=== PATIENT | male | born 1980 | race Caucasian/White ===

== ENCOUNTER 2017-01-31 15:30 | Emergency (ER) | payer BC ==
[2017-01-31 15:52] LABS: Glucose,Whole Blood 99 mg/dL (75-99)
--- NOTE | 2017-01-31 16:39 | ED ---
Recheck HPI - General Chief Complaint: Recheck/Abnormal Lab/Rx Stated Complaint: Hypoglycemia Source: patient Mode of arrival: ambulatory Limitations: no limitations - History of Present Illness Initial Comments: 36-year-old male presented for evaluation of hyperglycemia. He states that he came in to work today and had a coffee and a piece of toast with peanut butter and started to feel a little lightheaded and not himself. He took his blood sugar and found it to be 58. He ate some more food and at the recheck it had increased to an appropriate level. However little bit later he had similar symptoms again and checked his blood sugar and had once again decreased. He states he's had multiple episodes of this over the last months and has discussed it with his primary care physician but no workup has been performed. He denies any other associated symptoms. He is not a diabetic. There are no changes in medications. Review of Systems ROS Statement: Those systems with pertinent positive or pertinent negative responses have been documented in the HPI. ROS Other: All systems not noted in ROS Statement are negative. Constitutional: Denies: fever, chills, weakness, weight change, night sweats Eyes: Denies: eye pain, eye discharge, vision change ENT: Denies: ear pain, throat pain, dental pain, hearing loss, epistaxis, congestion Respiratory: Denies: cough, dyspnea, wheezes Cardiovascular: Denies: chest pain, palpitations, syncope Endocrine: Denies: fatigue, polydipsia, polyuria Gastrointestinal: Denies: abdominal pain, nausea, vomiting, diarrhea, constipation, hematemesis Genitourinary: Denies: urgency, dysuria Musculoskeletal: Denies: back pain, arthralgia, myalgia Skin: Denies: rash, lesions, change in color Neurological: Reports: weakness. Denies: headache Psychiatric: Denies: anxiety, depression, auditory hallucinations, visual hallucinations Hematological/Lymphatic: Denies: easy bleeding, easy bruising Past Medical History Past Medical History: Hypertension History of Any Multi-Drug Resistant Organisms: None Reported Past Surgical History: No Surgical Hx Reported Past Psychological History: No Psychological Hx Reported Smoking Status: Never smoker Past Alcohol Use History: Occasional Past Drug Use History: None Reported General Exam Limitations: no limitations General appearance: alert, in no apparent distress Head exam: Present: atraumatic, normocephalic, normal inspection Eye exam: Present: normal appearance, PERRL, EOMI. Absent: scleral icterus, conjunctival injection, periorbital swelling ENT exam: Present: normal exam, mucous membranes moist Neck exam: Present: normal inspection. Absent: tenderness, meningismus, lymphadenopathy Respiratory exam: Present: normal lung sounds bilaterally. Absent: respiratory distress, wheezes, rales, rhonchi, stridor Cardiovascular Exam: Present: regular rate, normal rhythm, normal heart sounds. Absent: systolic murmur, diastolic murmur, rubs, gallop, clicks GI/Abdominal exam: Present: soft, normal bowel sounds. Absent: distended, tenderness, guarding, rebound, rigid Rectal exam: Present: deferred Extremities exam: Present: normal inspection, full ROM, normal capillary refill. Absent: tenderness, pedal edema, joint swelling, calf tenderness Back exam: Present: normal inspection Neurological exam: Present: alert, oriented X3, CN II-XII intact Psychiatric exam: Present: normal affect, normal mood Skin exam: Present: warm, dry, intact, normal color. Absent: rash Course Vital Signs 01/31/17 01/31/17 15:49 16:55 Temperature 99.3 F 98.4 F Pulse Rate 80 75 Respiratory 20 18 Rate Blood Pressure 154/86 157/97 O2 Sat by Pulse 98 96 Oximetry Medical Decision Making - Medical Decision Making 36-year-old male presenting for evaluation of hyperglycemia. Upon presentation to the ED his blood sugar was within normal limits. A complete physical exam was performed without any abnormalities noted including intact cranial nerves II through XII without focal neurologic deficit, normal gait and station, soft abdomen without peritoneal signs of guarding, rigidity, rebound, lungs clear to auscultation bilaterally. The patient was informed of his new blood glucose and that labs would not be necessary at this time. He was advised follow-up with his primary care physician for further evaluation and treatment however he was given return instructions should his symptoms return, worsen, or persist. The patient acknowledged an understanding of this information and agreed with this plan of care. He was stable at discharge. - Lab Data Lab Results 01/31/17 Range/Units 15:50 POC Glucose (mg/dL) 99 (75-99) mg/dL POC Glu Weight Checker ID Bridgette Bailey Disposition Clinical Impression: Hypoglycemia Disposition: HOME SELF-CARE Condition: Stable Instructions: Non-diabetic Hypoglycemia (ED) Referrals: Mary Jo Ceballos MD [Primary Care Provider] - 1-2 days Time of Disposition: 16:39
[2017-01-31 16:57] VITALS: BP 157/97; PULSE 75; RESP 18; TEMP 98.4
== END 2017-01-31 16:57 | disposition home or self-care (01) ==
LOC: EC 15:30
DX: E16.2 Hypoglycemia, unspecified (principal)
CPT/HCPCS: 36415; 99283

== ENCOUNTER → 2017-10-07 | Outpatient (CLI) | payer BC ==
--- NOTE | 2017-10-07 10:07 | XR ---
EXAMINATION TYPE: XR chest 2V DATE OF EXAM: 10/07/2017 COMPARISON: 05/13/2013 INDICATION: Chest pain TECHNIQUE: Frontal and lateral views of the chest are obtained. FINDINGS: The heart size is normal. The pulmonary vasculature is normal. The lungs are clear. IMPRESSION: 1. No acute pulmonary process.
== END | disposition home or self-care (01) ==
LOC: RADXRMAIN 09:32
PROVIDERS: ATTEND Emergency Medicine
DX: R07.9 Chest pain, unspecified (principal)
CPT/HCPCS: 71046

== ENCOUNTER 2019-03-16 11:07 | Emergency (ER) | payer BC, OTHER ==
[2019-03-16 11:13] VITALS: BP 163/93; PULSE 82; RESP 16; TEMP 98
--- NOTE | 2019-03-16 11:39 | XR ---
EXAMINATION TYPE: XR ankle complete bilateral DATE OF EXAM: 03/16/2019 CLINICAL HISTORY: Bilateral swelling and pain after falling injury TECHNIQUE: Frontal, lateral and oblique images of the bilateral ankles are obtained. COMPARISON: None. FINDINGS: There is no acute fracture/dislocation evident in either ankle. The ankle mortise appears within normal limits bilaterally. Mild soft tissue swelling over lateral malleolus left ankle is not ed.. IMPRESSION: There is no acute fracture or dislocation in either ankle.
[2019-03-16] MEDS ORDERED: HYDROcodone/APAP 7.5-325MG 1 EACH TAB PO ONE (11:49)
--- NOTE | 2019-03-16 11:50 | ED ---
Lower Extremity Injury HPI - General Chief Complaint: Extremity Injury, Lower Stated Complaint: Fall, [facility] Time Seen by Provider: 03/16/19 11:08 Source: patient, EMS, RN notes reviewed Mode of arrival: EMS Limitations: no limitations - History of Present Illness Initial Comments: This is a 38-year-old male presents emergency Department chief complaint of left ankle pain and mild right ankle pain. 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 Patient states he has severe left lateral pain and mild right ankle pain. Patient denies any head injury no loss conscious. Patient was transported to the emergency department via EMS was given fentanyl. Patient denies any upper extremity injury patient offers no other complaints. - Related Data Previous Rx's Medication Instructions Recorded HYDROcodone/APAP 7.5-325MG [[place] 1 tab PO Q6HR PRN 3 Days #12 tab 03/16/19 7.5-325] Ibuprofen [Motrin] 800 mg PO Q6HR #30 tab 03/16/19 Allergies Allergy/AdvReac Type Severity Reaction Status Date / Time codeine Allergy Unknown Verified 03/16/19 11:14 Review of Systems ROS Statement: Those systems with pertinent positive or pertinent negative responses have been documented in the HPI. ROS Other: All systems not noted in ROS Statement are negative. Past Medical History Past Medical History: Hypertension History of Any Multi-Drug Resistant Organisms: None Reported Past Surgical History: No Surgical Hx Reported Past Psychological History: No Psychological Hx Reported Smoking Status: Never smoker Past Alcohol Use History: Occasional Past Drug Use History: None Reported General Exam Limitations: no limitations General appearance: alert, in no apparent distress Head exam: Present: atraumatic, normocephalic, normal inspection Eye exam: Present: normal appearance, PERRL, EOMI. Absent: scleral icterus, conjunctival injection, periorbital swelling Neck exam: Present: normal inspection, full ROM. Absent: tenderness, meningismus, lymphadenopathy Respiratory exam: Present: normal lung sounds bilaterally. Absent: respiratory distress, wheezes, rales, rhonchi, stridor Cardiovascular Exam: Present: regular rate, normal rhythm, normal heart sounds. Absent: systolic murmur, diastolic murmur, rubs, gallop, clicks Extremities exam: Present: other (Left ankle there is tenderness in the lateral malleoli region, moderate swelling there is no pain proximal or distal pedal pulses are equal bilaterally there is no tenderness in the posterior ankle region on the right otherwise extremity exam within normal limits) Neurological exam: Present: alert, oriented X3, CN II-XII intact Skin exam: Present: warm, dry, intact, normal color. Absent: rash Course Vital Signs 03/16/19 11:10 Temperature 98 F Pulse Rate 82 Respiratory 16 Rate Blood Pressure 163/93 O2 Sat by Pulse 97 Oximetry Medical Decision Making - Medical Decision Making 38-year-old male presented for fall, ankle injury. Patient has left ankle sprain, right Achilles strain. Patient blistering conservative treatment. Patient will be discharged for recheck and return parameters were discussed. Disposition Clinical Impression: Fall, Left ankle sprain, Strain of right Achilles tendon Disposition: HOME SELF-CARE Condition: Stable Instructions (If sedation given, give patient instructions): Ankle Sprain (ED) Additional Instructions: Please return to the Emergency Department if symptoms worsen or any other concerns. Prescriptions: Ibuprofen [Motrin] 800 mg PO Q6HR #30 tab HYDROcodone/APAP 7.5-325MG [[place] 7.5-325] 1 tab PO Q6HR PRN 3 Days #12 tab PRN Reason: Pain Is patient prescribed a controlled substance at d/c from ED?: Yes When asked, does pt state using other controlled substances?: No If prescribed controlled substance>3 days was MAPS reviewed?: Prescribed <3 Days If opioid is for acute pain is fill amount 7 days or less?: Yes If Rx opioid, was Start Talking consent form obtained?: Yes Referrals: Mary Jo Ceballos MD [Primary Care Provider] - 1-2 days Time of Disposition: 11:50
== END 2019-03-16 12:04 | disposition home or self-care (01) ==
LOC: EC 11:07
DX: S86.011A Strain of right Achilles tendon, initial encounter (principal); S93.402A Sprain of unspecified ligament of left ankle, initial encounter; Z88.5 Allergy status to narcotic agent; X50.1XXA Overexertion from prolonged static or awkward postures, initial encounter; Y92.89 Other specified places as the place of occurrence of the external cause; Y99.0 Civilian activity done for income or pay
CPT/HCPCS: 99284

== ENCOUNTER 2019-08-21 13:00 | Emergency (ER) | payer OTHER ==
[2019-08-21 13:15] VITALS: TEMP 97.9
[2019-08-21] MEDS ORDERED: LIDOCAINE 1% INJ 10MG/ML (20 ML MDV) SQ ONE (13:34)
--- NOTE | 2019-08-21 13:54 | XR ---
EXAMINATION TYPE: XR finger LT DATE OF EXAM: 08/21/2019 COMPARISON: NONE HISTORY: laceration TECHNIQUE: 3 views thumb FINDINGS: No fracture or dislocation. No foreign body seen. IMPRESSION: Negative
--- NOTE | 2019-08-21 14:19 | ED ---
Wound/Laceration HPI - General Chief Complaint: Wound/Laceration Stated Complaint: Thumb Injury Time Seen by Provider: 08/21/19 13:20 Source: patient Mode of arrival: ambulatory Limitations: no limitations - History of Present Illness Initial Comments: 39yo male presenting today for chief complaint of right thumb laceration that occurred just prior to arriva.. Patient states he was cutting with a box knife and he came down on his left thumb dorsal aspect. Patient denies any loss of sensation or decreased range of motion patient denies any decreased strength. She states bleeding is controlled he states tetanus is up-to-date. Patient denies any other areas of injury upon arrival patient appears well no signs of acute distress. - Related Data Previous Rx's Medication Instructions Recorded HYDROcodone/APAP 7.5-325MG [[place] 1 tab PO Q6HR PRN 3 Days #12 tab 03/16/19 7.5-325] Ibuprofen [Motrin] 800 mg PO Q6HR #30 tab 03/16/19 Allergies Allergy/AdvReac Type Severity Reaction Status Date / Time codeine AdvReac migraine Verified 08/21/19 13:15 Review of Systems ROS Statement: Those systems with pertinent positive or pertinent negative responses have been documented in the HPI. ROS Other: All systems not noted in ROS Statement are negative. Past Medical History Past Medical History: Hypertension History of Any Multi-Drug Resistant Organisms: None Reported Past Surgical History: No Surgical Hx Reported Past Psychological History: No Psychological Hx Reported Smoking Status: Never smoker Past Alcohol Use History: Occasional Past Drug Use History: None Reported General Exam - General Exam Comments Initial Comments: General: The patient is awake and alert, in no distress, and does not appear acutely ill. Eye: +3 mm pupils are equal, round and reactive to light, extra-ocular movements are intact. No nystagmus. There is normal conjunctiva bilaterally. No signs of icterus. Cardiovascular: There is a regular rate and rhythm. No murmur, rub or gallop is appreciated. Respiratory: Lungs are clear to auscultation, respirations are non-labored, breath sounds are equal. No wheezes, stridor, rales, or rhonchi. Musculoskeletal: Normal ROM at the MCP DIP and PIP joint, no tenderness. Strength 5/5 at MCP, DIP and PIP joint. Sensation intact. Radial pulses equal bilaterally 2+. Neurological: A&O x 3. CN II-XII intact, There are no obvious motor or sensory deficits. Coordination appears grossly intact. Speech is normal. Skin: Skin is warm and dry and no rashes or lesions are noted. 1.5cm laceration of the left thumb just distal to the DIP joint, lacteral aspect. Not midline on dorsal aspect Psychiatric: Cooperative, appropriate mood & affect, normal judgment. Limitations: no limitations Course Vital Signs 08/21/19 08/21/19 13:14 14:21 Temperature 97.9 F 97.9 F Pulse Rate 78 75 Respiratory 16 18 Rate Blood Pressure 150/96 148/91 O2 Sat by Pulse 98 100 Oximetry Procedures - Laceration Laceration #1 Consent Obtained: verbal consent Indication: laceration Site: hand (left thumb) Size (cm): 0 (1.5cm actual size) Description: linear Depth: simple, single layer Anesthetic Used: lidocaine 1% Anesthesia Technique: local infiltration Amount (mls): 2 Pre-repair: wound explored, irrigated extensively, deep structures intact Type of Sutures: nylon Size of Sutures: 5-0 Number of Sutures: 3 Technique: simple, interrupted Patient Tolerated Procedure: well, no complications Medical Decision Making - Medical Decision Making 39yo male presented for chief complaint of thumb laceration. 1.5 cm, repair, XR (-), no evidence on imaging nor PE consistent with tendon injury. Discussed return parameters importance of suture care and follow-up patient verbalized understanding was discharged appearing well, Patient is not a diabetic. Disposition Clinical Impression: Thumb laceration, Pain of left thumb Disposition: HOME SELF-CARE Condition: Good Instructions (If sedation given, give patient instructions): Care For Your Stitches (ED), Finger Laceration (ED) Additional Instructions: Please use medication as discussed. Please follow-up with for suture removal in 7 days, no swimming for 5-6 days. Please return to emergency room if the symptoms increase or worsen or for any other concerns. Is patient prescribed a controlled substance at d/c from ED?: No Referrals: Mary Jo Ceballos MD [Primary Care Provider] - 1-2 days Time of Disposition: 14:18
[2019-08-21 14:24] VITALS: BP 148/91; PULSE 75; RESP 18
== END 2019-08-21 14:21 | disposition home or self-care (01) ==
LOC: EC 13:00
DX: S61.012A Laceration without foreign body of left thumb without damage to nail, initial encounter (principal); Z88.5 Allergy status to narcotic agent; W26.0XXA Contact with knife, initial encounter; Y93.89 Activity, other specified; Y99.0 Civilian activity done for income or pay
CPT/HCPCS: 73140; 99283; 12001; J2001

== ENCOUNTER → 2021-08-30 | Outpatient (CLI) | payer BC, OTHER ==
[2021-08-30 11:56] LABS: Glucose 2 Hour 141 mg/dL
== END | disposition home or self-care (01) ==
LOC: LABWHC1 07:57
PROVIDERS: ATTEND Family Medicine
DX: E16.2 Hypoglycemia, unspecified (principal)
CPT/HCPCS: 36415; 82947; 82950

== ENCOUNTER 2022-02-10 13:20 | Emergency (ER) | payer BC, OTHER ==
[2022-02-10] MEDS ORDERED: SODIUM CHLORIDE 0.9% 1,000 ML IV STA (13:25)
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
[2022-02-10 13:45] LABS: Basophils # (A) 0.1 k/uL (0-0.2); Basophils % (A) 1 %; Eosinophils # (A) 0.3 k/uL (0-0.7); Eosinophils % (A) 2 %; HCT 48.9 % (39.0-53.0); HGB 16.2 gm/dL (13.0-17.5); Lymphocytes % (A) 26 %; MCH 30.4 pg (25.0-35.0); MCHC 33.1 g/dL (31.0-37.0); Mean Platelet Volume 7.2; Monocytes # (A) 0.5 k/uL (0-1.0); Monocytes % (A) 5 %; Neutrophils # (A) 7.4 k/uL (1.3-7.7); Neutrophils % (A) 64 %; Platelet Count 443 k/uL (150-450); RBC 5.31 m/uL (4.30-5.90); RDW 13.1 % (11.5-15.5); WBC 11.5 k/uL (3.8-10.6)
--- NOTE | 2022-02-10 13:45 | XR ---
EXAMINATION TYPE: XR chest 2V DATE OF EXAM: 02/10/2022 1:40 PM COMPARISON: Chest radiographs from 09/24/2021 TECHNIQUE: XR chest 2V Frontal and lateral views of the chest. CLINICAL INDICATION:Male, 41 years old with history of difficulty breathing; FINDINGS: Lungs/Pleura: There is no evidence of pleural effusion, focal consolidation, or pneumothorax. Pulmonary vascularity: Unremarkable. Heart/mediastinum: Cardiomediastinal silhouette is unremarkable. Musculoskeletal: No acute osseous pathology. IMPRESSION: No acute cardiopulmonary disease/process.
[2022-02-10 13:54] LABS: Partial Thromboplastin Time 23.5 sec (22.0-30.0); Prothrombin Time 10.7 sec (9.0-12.0)
[2022-02-10 13:55] LABS: Albumin 4.5 g/dL (3.5-5.0); Calcium 9.5 mg/dL (8.4-10.2); Magnesium 2.2 mg/dL (1.6-2.3); Total Bilirubin 0.3 mg/dL (0.2-1.3); Total Protein 7.5 g/dL (6.3-8.2)
[2022-02-10] MEDS ORDERED: SODIUM CHLORIDE 0.9% 500 ML 500 ML IV STA (14:57)
[2022-02-10 17:19] VITALS: BP 129/84; PULSE 82; RESP 16; TEMP 98
== END 2022-02-10 17:21 | disposition home or self-care (01) ==
LOC: EC 13:20
DX: T75.1XXA Unspecified effects of drowning and nonfatal submersion, initial encounter (principal); E11.9 Type 2 diabetes mellitus without complications; I10 Essential (primary) hypertension; Z88.5 Allergy status to narcotic agent
CPT/HCPCS: 36415; 71046; 80053; 83605; 83735; 85025; 85610; 85730; 93005; 96360; 96361; 99291

== ENCOUNTER → 2023-07-29 | Outpatient (CLI) | payer BC ==
--- NOTE | 2023-07-29 15:00 | P.HPBAR ---
Bariatric H&P - History & Physicial H&P Date: 07/29/23 History & Physicial: Visit/CC: initial clinic visit Patient initial contact: Initial weight: Initial weight in pounds: Height: 6 ft 3 in Initial BMI: Last weight: Current weight: 149.685 kg Current weight in pounds: 330.00 Current BMI: 41.2 [place] body weight (based on NIH guidelines): 88.904 kg Excess body weight loss: The patient is a 43 year-old M who presents for Bariatric Assessment. Patient here to discuss weight loss surgery. His had sleeve gastrectomy her name is Angeline. Patient is also interested in sleeve gastrectomy. He has tried a variety of diets and has even tried Ozempic with marginal success. Patient suffers from hypertension, possible sleep apnea study pending, mild reflux symptoms at times. Patient being evaluated for arrhythmia thought to have PACs. Having a heart monitor currently. Denies tobacco use, no DVT, no dysphagia complaints. He has not had an EGD. His only abdominal surgery is a lap lilia. Review of Systems The patient denies any acute changes in vision or hearing, no dysphagia or odynophagia, no chest pain or shortness of breath, no dysuria or hematuria, no headache, no runny nose, no rectal bleeding or melena, no unexplained weight loss Past Medical History Past Medical History: Diabetes Mellitus, Hypertension History of Any Multi-Drug Resistant Organisms: None Reported Past Surgical History: No Surgical Hx Reported Past Anesthesia/Blood Transfusion Reactions: No Reported Reaction Past Psychological History: No Psychological Hx Reported Smoking Status: Never smoker Past Alcohol Use History: Occasional Past Drug Use History: None Reported Surgical - Exam Vital Signs Temp Pulse BP 98 F 84 157/91 07/29/23 14:35 07/29/23 14:35 07/29/23 14:35 Physical exam: General: Well-developed, well-nourished HEENT: Normocephalic, sclerae nonicteric Abdomen: Nontender, nondistended Extremities: No edema Neuro: Alert and oriented Bariatric Assessment & Plan (1) Morbid obesity with BMI of 40.0-44.9, adult Narrative/Plan: 43-year-old female with morbid obesity and associated comorbidities. Patient is interested in sleeve gastrectomy. Will tentatively schedule for hiatal hernia at this time. Await completion of cardiac workup and will require cardiac clearance. Await upcoming sleep study as well. We discussed the options of sleeve gastrectomy, gastric bypass in detail. The risks of bleeding, infection, stenosis, stricture, leak, abscess, fistula formation, peritonitis, poor weight loss, reflux, vomiting, conversion to an open procedure, aborting sleeve gastrectomy, CA, PE, DVT, and were discussed. All questions answered. Status: Acute Bariatric Checklist Checklist: Plan: Checklist: EGD: 1. Hiatal hernia: 2. H. Pylori: HgbA1c: Vitamin D: Smoking: Never smoker Primary care physician referral: Psychiatry clearance: Cardiology clearance: Sleep study: Diet journal: VTE risk score: VTE risk level: Rehab needs at discharge:
[2023-07-29 15:03] VITALS: BP 157/91; PULSE 84; TEMP 98; BMI 41.2
[2023-07-29 20:32] LABS: HCT 45.9 % (39.6-50.0); HGB 15.1 g/dL (13.0-17.0); MCH 29.7 pg (27.0-32.0); MCHC 32.9 g/dL (32.0-37.0); MCV 90.4 FL (80.0-97.0); Mean Platelet Volume 10.2 FL (9.5-12.2); NRBC Per 100 WBC 0 X 10*3/uL (0.00-0.01); Platelet Count 346 X 10*3/uL (140-440); RBC 5.08 X 10*6/uL (4.40-5.60); RDW 12.9 % (11.5-14.5); WBC 7.72 X 10*3/uL (4.50-10.00)
[2023-07-29 21:07] LABS: % Iron Saturation 18.04 (15.00-50.00); ALT 35 U/L (10-49); AST 21 U/L (14-35); Alkaline Phosphatase 89 U/L (41-126); BUN/Creat Ratio 14.92 Ratio (12.00-20.00); Blood Urea Nitrogen 19.4 mg/dL (9.0-27.0); Calcium 9.6 mg/dL (8.7-10.3); Carbon Dioxide 21.5 mmol/L (21.6-31.8); Chloride 109 mmol/L (96-109); Globulin 2.5 g/dL (1.6-3.3); Glucose 111 mg/dL (70-110); Iron 57 UG/DL (65-175); Potassium 4.3 mmol/L (3.5-5.5); Sodium 142 mmol/L (135-145); Total Bilirubin 0.2 mg/dL (0.3-1.2); Total Iron Binding Capacity 316 UG/DL (228-460); Total Protein 6.5 g/dL (6.2-8.2)
== END ==
LOC: BARWHC3 14:16
PROVIDERS: ATTEND Surgery
DX: E66.01 Morbid (severe) obesity due to excess calories (principal); E55.9 Vitamin D deficiency, unspecified; K90.89 Other intestinal malabsorption; E11.9 Type 2 diabetes mellitus without complications; I10 Essential (primary) hypertension; Z88.5 Allergy status to narcotic agent; Z68.41 Body mass index [BMI] 40.0-44.9, adult
CPT/HCPCS: 80053; 80323; 82306; 82607; 82746; 83540; 83550; 84425; 85027; 99212

== ENCOUNTER → 2023-09-15 | Outpatient (CLI) | payer BC ==
[2023-09-15 14:41] VITALS: BMI 41.2
== END | disposition home or self-care (01) ==
LOC: BARWHC3 13:02
PROVIDERS: ATTEND Surgery
DX: E66.01 Morbid (severe) obesity due to excess calories (principal); Z71.3 Dietary counseling and surveillance; Z68.41 Body mass index [BMI] 40.0-44.9, adult; Z88.5 Allergy status to narcotic agent
CPT/HCPCS: 97804; 99211

== ENCOUNTER 2023-09-30 12:25 | Day surgery (SDC) | payer BC ==
[2023-09-26 10:08] VITALS: BMI 41.3
[~2023-09-30 12:25] MED LIST: LIDOCAINE 1% (10MG/ML) FOR IV START INTRADERMA PRN
[2023-09-30] MEDS: LACTATED RINGERS 1,000 ML IV SCH (12:57)
[2023-09-30 13:06] VITALS: TEMP 97.2
[2023-09-30] MEDS ORDERED: PROPOFOL 10 MG/ML 20 ML VIAL IV ONE (13:15)
[2023-09-30] MEDS ORDERED: LIDOCAINE 1% INJ 10MG/ML (20 ML MDV) ONE (13:15)
--- NOTE | 2023-09-30 13:20 | P.GSHP ---
History of Present Illness H&P Date: 09/30/23 Chief Complaint: GERD 43-year-old male here for upper endoscopy. Patient being seen for possible sleeve gastrectomy. Mild reflux symptoms. No dysphagia. Past Medical History Past Medical History: Hypertension History of Any Multi-Drug Resistant Organisms: None Reported Past Surgical History: Cholecystectomy Past Anesthesia/Blood Transfusion Reactions: No Reported Reaction Additional Past Anesthesia/Blood Transfusion Reaction / Comment(s): no blood transfusion Smoking Status: Never smoker Medications and Allergies Home Medications Medication Instructions Recorded Confirmed Type Ergocalciferol [Vitamin D2 (1250 50,000 unit PO MOWE 08/05/23 09/30/23 History Mcg = 14400 Iu)] lisinopriL [Zestril] 20 mg PO DAILY 08/05/23 09/30/23 History Calcium Carbonate [Calcium] 600 mg PO DAILY 09/26/23 09/30/23 History Multivitamin [Multivitamins Adult 1 each PO DAILY 09/26/23 09/30/23 History Gummies] Allergies Allergy/AdvReac Type Severity Reaction Status Date / Time codeine AdvReac migraine Verified 09/30/23 13:02 Surgical - Exam Vital Signs Temp Pulse Resp BP Pulse Ox 97.2 F L 79 18 128/84 95 09/30/23 13:01 09/30/23 13:01 09/30/23 13:01 09/30/23 13:01 09/30/23 13:01 Physical exam: General: Well-developed, well-nourished HEENT: Normocephalic, sclerae nonicteric Abdomen: Nontender, nondistended Extremities: No edema Neuro: Alert and oriented Assessment and Plan (1) GERD (gastroesophageal reflux disease) Narrative/Plan: Proceed with upper endoscopy at this time Current Visit: Yes Status: Acute Code(s): K21.9 - GASTRO-ESOPHAGEAL REFLUX DISEASE WITHOUT ESOPHAGITIS SNOMED Code(s): 270547999
--- NOTE | 2023-09-30 13:28 | P.PCN ---
Date of Procedure: 09/30/23 Procedure(s) Performed: Preoperative Dx: GERD, presurgical Postoperative Dx: Mild gastritis Procedure: EGD with Bx Anesthesia: Sedation Endoscopist: Dr. Barillas Specimens: Antrum Endoscopic Procedure: The patient was on the endoscopy table in the left decubitus position. The Olympus gastroscope was inserted into the oropharynx and passed under direct visualization to the region of the third portion of the duodenum. From that point the scope was slowly withdrawn inspecting all surfaces carefully. There were no neoplastic inflammatory or polypoid lesions throughout the duodenum. The pylorus was widely patent. The stomach was carefully inspected. There was mild gastritis present. A biopsy of the antrum took place to rule out H. pylori. Retroflexion revealed a normal hiatus. The esophagus was then carefully examined. There were no neoplastic inflammatory or polypoid lesions throughout the visualized esophagus. The patient was then taken to the recovery room in stable condition per anesthesia guidelines. Recommendations: Resume diet. Await biopsy results. Follow-up bariatric clinic.
[2023-09-30 14:17] VITALS: BP 134/89; PULSE 81; RESP 18
== END 2023-09-30 14:24 | disposition home or self-care (01) ==
LOC: ORWHC2ENDO 12:25
PROVIDERS: ATTEND Surgery
DX: K29.50 Unspecified chronic gastritis without bleeding (principal); K21.9 Gastro-esophageal reflux disease without esophagitis; I48.91 Unspecified atrial fibrillation; I10 Essential (primary) hypertension; G47.33 Obstructive sleep apnea (adult) (pediatric); F41.9 Anxiety disorder, unspecified; E66.9 Obesity, unspecified; Z68.43 Body mass index [BMI] 50.0-59.9, adult; Z88.5 Allergy status to narcotic agent; Z79.899 Other long term (current) drug therapy; Z90.49 Acquired absence of other specified parts of digestive tract
CPT/HCPCS: 88305; 43239; J2001; J2704

== ENCOUNTER → 2023-10-14 | Outpatient (CLI) | payer BC ==
[2023-10-14 15:13] VITALS: BP 142/86; PULSE 86; TEMP 98.1; BMI 41.3
--- NOTE | 2023-10-14 15:54 | P.BASOAP ---
Subjective Progress Note Date: 10/14/23 Principal diagnosis: Morbid obesity Patient returns for reevaluation. No new complaints. No changes to his previous history and physical. BMI 41 today. Recent EGD showed mild gastritis. Biopsies negative for H. pylori. Objective - Vital Signs Vital signs: Vital Signs Temp 98.1 F 10/14/23 14:47 Pulse 86 10/14/23 14:47 Resp BP 142/86 10/14/23 14:47 Pulse Ox FiO2 Intake & Output 10/13/23 10/14/23 10/14/23 18:59 06:59 18:59 Weight 150.139 kg - Exam Abdomen: Soft, nontender, nondistended Assessment/Plan (1) Morbid obesity with BMI of 40.0-44.9, adult Narrative/Plan: 43-year-old male with morbid obesity. Patient remains interested in sleeve gastrectomy. Surgical consent form reviewed in detail. Will schedule for laparoscopic, da Desmond assisted sleeve gastrectomy, possible open. The risks of bleeding, infection, stenosis, stricture, leak, abscess, fistula formation, peritonitis, poor weight loss, reflux, vomiting, conversion to an open procedure, aborting sleeve gastrectomy, NM, PE, DVT, and were discussed. The patient understands and wishes to proceed. Plan: Date: 10/14/23 Initial Weight: Initial BMI: Current Weight: 150.139 kg Current BMI: 41.3 Type of Surgery: Total Volume in Band: Previous Volume: Volume Removed: Volume Added: Band Size:
== END ==
LOC: BARWHC3 14:20
PROVIDERS: ATTEND Surgery
DX: E66.01 Morbid (severe) obesity due to excess calories (principal); Z68.41 Body mass index [BMI] 40.0-44.9, adult; Z88.5 Allergy status to narcotic agent
CPT/HCPCS: 99211

== ENCOUNTER → 2023-12-03 | Outpatient (CLI) | payer BC ==
[2023-12-03 14:40] LABS: Basophils # (A) 0.05 X 10*3/uL (0.00-0.10); Basophils % (A) 0.7 %; Eosinophils # (A) 0.13 X 10*3/uL (0.04-0.35); Eosinophils % (A) 1.7 %; HCT 49.3 % (39.6-50.0); HGB 16.3 g/dL (13.0-17.0); Lymphocytes # (A) 1.61 X 10*3/uL (0.90-5.00); Lymphocytes % (A) 21.4 %; MCH 30.3 pg (27.0-32.0); MCHC 33.1 g/dL (32.0-37.0); MCV 91.6 FL (80.0-97.0); Mean Platelet Volume 10.2 FL (9.5-12.2); Monocytes # (A) 0.56 X 10*3/uL (0.20-1.00); Monocytes % (A) 7.4 %; NRBC Per 100 WBC 0 X 10*3/uL (0.00-0.01); Neutrophils # (A) 5.18 X 10*3/uL (1.80-7.70); Neutrophils % (A) 68.7 %; Platelet Count 371 X 10*3/uL (140-440); RBC 5.38 X 10*6/uL (4.40-5.60); RDW 12.8 % (11.5-14.5); WBC 7.54 X 10*3/uL (4.50-10.00)
[2023-12-03 15:03] LABS: ALT 72 U/L (10-49); AST 42 U/L (14-35); Albumin 4.6 g/dL (3.8-4.9); Albumin/Globulin Ratio 1.84 Ratio (1.60-3.17); Alkaline Phosphatase 86 U/L (41-126); BUN/Creat Ratio 15.18 Ratio (12.00-20.00); Blood Urea Nitrogen 16.7 mg/dL (9.0-27.0); Calcium 9.9 mg/dL (8.7-10.3); Carbon Dioxide 23.2 mmol/L (21.6-31.8); Chloride 105 mmol/L (96-109); Globulin 2.5 g/dL (1.6-3.3); Glucose 84 mg/dL (70-110); Potassium 4.7 mmol/L (3.5-5.5); Sodium 141 mmol/L (135-145); Total Bilirubin 0.3 mg/dL (0.3-1.2); Total Protein 7.1 g/dL (6.2-8.2)
== END | disposition home or self-care (01) ==
LOC: LABPAT 10:52
PROVIDERS: ATTEND Surgery
DX: Z01.812 Encounter for preprocedural laboratory examination (principal)
CPT/HCPCS: 36415; 80053; 85025; 86850; 86900; 86901

== ENCOUNTER 2023-12-08 08:43 | Observation (INO) | payer BC ==
[2023-12-04 09:45] VITALS: BMI 39.9
--- NOTE | 2023-12-08 07:27 | P.GSHP ---
History of Present Illness H&P Date: 12/08/23 Chief Complaint: Morbid obesity 43-year-old male initially seen in the bariatric center in July. Patient interested in sleeve gastrectomy. Cold duties include hypertension GERD and possible sleep apnea. Previous surgery includes laparoscopic cholecystectomy. Initial BMI 41. Recent BMI 40. No history of DVT or dysphagia. His had a sleeve gastrectomy previously as well. Past Medical History Past Medical History: Hypertension History of Any Multi-Drug Resistant Organisms: None Reported Past Surgical History: Cholecystectomy Additional Past Surgical History / Comment(s): EGD Past Anesthesia/Blood Transfusion Reactions: No Reported Reaction Additional Past Anesthesia/Blood Transfusion Reaction / Comment(s): no blood transfusion Smoking Status: Never smoker - Past Family History Mother Family Medical History: No Reported History Medications and Allergies Home Medications Medication Instructions Recorded Confirmed Type Ergocalciferol [Vitamin D2 (1250 50,000 unit PO MOWE 08/05/23 12/04/23 History Mcg = 64251 Iu)] lisinopriL [Zestril] 20 mg PO DAILY 08/05/23 12/04/23 History Calcium Carbonate [Calcium] 600 mg PO DAILY 09/26/23 12/04/23 History Multivitamin [Multivitamins Adult 1 each PO DAILY 09/26/23 12/04/23 History Gummies] Allergies Allergy/AdvReac Type Severity Reaction Status Date / Time codeine AdvReac migraine Verified 12/04/23 09:26 Surgical - Exam Physical exam: General: Well-developed, well-nourished HEENT: Normocephalic, sclerae nonicteric Abdomen: Nontender, nondistended Extremities: No edema Neuro: Alert and oriented Assessment and Plan (1) Morbid obesity with BMI of 40.0-44.9, adult Narrative/Plan: 43-year-old male here for elective laparoscopic da Desmond assisted sleeve gastrectomy. The risks of bleeding, infection, stenosis, stricture, leak, abscess, fistula formation, peritonitis, poor weight loss, reflux, vomiting, conversion to an open procedure, aborting sleeve gastrectomy, NV, PE, DVT, and were discussed. The patient understands and wishes to proceed. Status: Acute Code(s): E66.01 - MORBID (SEVERE) OBESITY DUE TO EXCESS CALORIES; Z68.41 - BODY MASS INDEX [BMI] 40.0-44.9, ADULT SNOMED Code(s): 642499270
[~2023-12-08 08:43] MED LIST changes: -LIDOCAINE 1% (10MG/ML) FOR IV START INTRADERMA PRN; +MIDAZOLAM 2 MG/2 ML VIAL IV PRN; +ONDANSETRON 4 MG/2 ML VIAL IVP PRN; +fentaNYL (PF) 50 MCG/ML 2 ML AMP IVP PRN
[2023-12-08] MEDS: ACETAMINOPHEN TAB 500 MG TAB PO PRN (09:10)
[2023-12-08] MEDS: LIDOCAINE 1% (10MG/ML) FOR IV START INTRADERMA PRN (09:10)
[2023-12-08] MEDS: IV FLUID CONTINUATION 1,000 ML IV ONE (09:20)
[2023-12-08] MEDS: ONDANSETRON 4 MG/2 ML VIAL IVP ONE (09:30)
[2023-12-08] MEDS: LACTATED RINGERS 1,000 ML IV SCH (09:35)
[2023-12-08] MEDS: DEXAMETHASONE SOD PHOSPHATE 4 MG/ML 1 ML VIAL IV ONE (09:36)
[2023-12-08] MEDS: ENOXAPARIN 40 MG/0.4 ML SYRINGE SQ PRN (09:36)
[2023-12-08] MEDS: SCOPOLAMINE 1 MG/72 HR PATCH TRANSDERM STA (09:42)
[2023-12-08] MEDS ORDERED: diphenhydrAMINE 50 MG/ML 1 ML VIAL ONE (09:47)
[2023-12-08] MEDS ORDERED: MIDAZOLAM 2 MG/2 ML VIAL ONE (09:47)
[2023-12-08] MEDS ORDERED: SUCCINYLCHOLINE CHLORIDE 200 MG/10 ML VIAL IV ONE (09:47)
[2023-12-08] MEDS ORDERED: KETAMINE HCL IN 0.9 % NACL 50 MG/5 ML SYRINGE ONE (09:47)
[2023-12-08] MEDS ORDERED: fentaNYL (PF) 50 MCG/ML 2 ML AMP ONE (09:47)
[2023-12-08] MEDS ORDERED: GLYCOPYRROLATE 0.2 MG/ML 2 ML VIAL ONE (09:47)
[2023-12-08] MEDS ORDERED: PROPOFOL 10 MG/ML 20 ML VIAL IV ONE (09:47)
[2023-12-08] MEDS ORDERED: ROCURONIUM 10 MG/ML (5 ML VIAL) IV ONE (09:47)
[2023-12-08] MEDS ORDERED: NEOSTIGMINE 1 MG/ML 10 ML VIAL ONE (09:47)
[2023-12-08] MEDS ORDERED: LIDOCAINE 1% INJ 10MG/ML (20 ML MDV) ONE (09:47)
[2023-12-08] MEDS ORDERED: PHENYLEPHRINE-0.9% NACL SYG 1,000 MCG/10 ML SYRINGE ONE (09:47)
[2023-12-08] MEDS: BUPIVACAINE (PF) 0.25% 30 ML VIAL SQ ONE (09:50)
[2023-12-08] MEDS: ceFAZolin 3 GM in SODIUM CHLORIDE 0.9% 100 ML IVPB PRN (09:50)
[2023-12-08] MEDS: LACTATED RINGERS 1,000 ML IV ONE (10:57)
[2023-12-08] MEDS ORDERED: NALOXONE 0.4 MG/ML 1 ML VIAL IV PRN (11:57)
[2023-12-08] MEDS ORDERED: HYOSCYAMINE ORAL DROPS 1.875 MG/15 ML BOTTLE PO PRN (11:57)
[2023-12-08] MEDS ORDERED: diphenhydrAMINE 50 MG/ML 1 ML VIAL IVP PRN (11:57)
[2023-12-08] MEDS ORDERED: 0.9% NACL WITH KCL 20 MEQ/L 1,000 ML IV SCH (12:00)
[2023-12-08] MEDS ORDERED: ACETAMINOPHEN IV (For NPO) 1,000 MG in EMPTY BAG 1 BAG IVPB SCH (12:00)
--- NOTE | 2023-12-08 12:01 | P.OP ---
Date of Procedure: 12/08/23 Procedure(s) Performed: PREOPERATIVE DIAGNOSIS: Morbid obesity, hypertension POSTOPERATIVE DIAGNOSIS: Same PROCEDURE: Da Desmond assisted laparoscopic sleeve gastrectomy SURGEON: Nargis EBL: Minimal ANESTHESIA: General COMPLICATIONS: None OPERATIVE PROCEDURE: Patient was placed in the operating table in the supine position. The patient was then placed under general anesthesia at that time. The abdomen was prepped and draped in the usual sterile fashion. A 5 mm optical trocar was placed in the left upper quadrant 20 cm inferior to the xiphoid process. Insufflation took place up to 15 mmHg. No adhesions were seen. A 5 mm subxiphoid incision was made and the medium Willow retractor was used to e levate the left lobe of liver anteriorly. This was held in place using the fixed arm retractor. An additional 12 mm trocar was placed in the right paramedian location and 2 additional 8 mm trochars were placed in the left upper quadrant one medial and one lateral to the initially placed optical trocar. All of these trochars were placed along the same plane. The initial 5 was then switched to an 8 mm trocar. The robot was then docked appropriately. The 8 mm camera was placed in the left paramedian trocar site down viewing. A fenestrated bipolar was placed in arm 1, arm 3 had the vessel sealer, arm 4 had the small grasper retractor. The hiatus was inspected and there was no visible hiatal hernia. At that point I moved to the distal aspect of the greater curvature the stomach. The short gastric vasculature were divided using the vessel sealer. This dissection took place distally until we were 4 cm from the pylorus. The posterior adhesions were divided as well. The dissection then took place proximally along the stomach until the posterior short gastrics were divided and the fundus of the stomach was fully mobilized. Once the stomach was fully mobilized the blunt tipped 40-[place] bougie dilator was advanced into the stomach and advanced all the way to the prepyloric location. The patient's stomach by palpation seemed to be of average thickness. First load of the stapler was a green load, second 2 loads were blue loads, remaining 3 loads were blue loads with seam guard buttressing. The stomach was then placed in the right upper quadrant after it was fully excised. The oral gastric tube was reinserted. The stomach was insufflated with approximately 100 mL of methylene blue. No evidence of leak or obstruction was seen. Pressure was then dropped to 8 mm for 2-3 minutes. The staple line was inspected and no bleeding was seen. Tisseel fibrin glue was then used along the length of the staple line. The robot was then undocked. The da Desmond laparoscope was used and the stomach was removed from the 12 mm trocar site without difficulty. The fascia at the 12mm site was closed using [id number] 0 Vicryl sutures with the laparoscopic suture passer and Shakeel Urban technique. The insufflation was evacuated. The skin at all 5 incisions were closed using 4-0 Monocryl sutures. Skin glue was then applied. DISPOSITION: Stable to recovery room
[2023-12-08] MEDS: HYDROmorphone 0.5 MG/0.5 ML SYRINGE IVP PRN (12:36)
[2023-12-08] MEDS ORDERED: HYDROmorphone (PF) 1 MG/ML ONE (13:00)
[2023-12-08] MEDS: HYDROmorphone 1 MG/ML 1 ML SYRINGE IVP PRN (15:04)
[2023-12-08] MEDS: ALBUTEROL NEBULIZED 2.5 MG/3 ML INHALATION SCH (15:11)
[2023-12-08] MEDS: ACETAMINOPHEN IV (For NPO) 1,000 MG in EMPTY BAG 1 BAG IVPB SCH (16:34)
[2023-12-08] MEDS: ONDANSETRON 4 MG/2 ML VIAL IVP PRN (16:34)
[2023-12-08] MEDS: 0.9% NACL WITH KCL 20 MEQ/L 1,000 ML IV SCH (18:42)
[2023-12-08] MEDS: SIMETHICONE 80 MG CHEWABLE PO PRN (20:17)
[2023-12-08] MEDS: ENOXAPARIN 40 MG/0.4 ML SYRINGE SQ SCH (22:53)
[2023-12-09] MEDS: HYDROmorphone 0.5 MG/0.5 ML SYRINGE IVP PRN (02:47)
[2023-12-09] MEDS ORDERED: 0.9% NACL WITH KCL 20 MEQ/L 1,000 ML IV SCH (08:00)
[2023-12-09] MEDS: PANTOPRAZOLE 40 MG/10 ML VIAL IV SCH (08:40)
[2023-12-09] MEDS: 0.9% NACL WITH KCL 20 MEQ/L 1,000 ML IV SCH (08:41)
[2023-12-09 08:44] LABS: Basophils # (A) 0.01 X 10*3/uL (0.00-0.10); Basophils % (A) 0.1 %; Eosinophils # (A) 0 X 10*3/uL (0.04-0.35); Eosinophils % (A) 0 %; HGB 14.1 g/dL (13.0-17.0); Lymphocytes # (A) 1.25 X 10*3/uL (0.90-5.00); Lymphocytes % (A) 10.8 %; MCH 29.9 pg (27.0-32.0); MCHC 32.8 g/dL (32.0-37.0); MCV 91.1 FL (80.0-97.0); Mean Platelet Volume 10.4 FL (9.5-12.2); Monocytes # (A) 0.71 X 10*3/uL (0.20-1.00); Monocytes % (A) 6.1 %; NRBC Per 100 WBC 0 X 10*3/uL (0.00-0.01); Neutrophils # (A) 9.55 X 10*3/uL (1.80-7.70); Neutrophils % (A) 82.6 %; Platelet Count 361 X 10*3/uL (140-440); RBC 4.72 X 10*6/uL (4.40-5.60); WBC 11.57 X 10*3/uL (4.50-10.00)
[2023-12-09 08:55] LABS: Blood Urea Nitrogen 9.3 mg/dL (9.0-27.0); Calcium 8.8 mg/dL (8.7-10.3); Carbon Dioxide 19.7 mmol/L (21.6-31.8); Chloride 102 mmol/L (96-109); Phosphorus 3.7 mg/dL (2.4-5.1); Potassium 4.6 mmol/L (3.5-5.5); Sodium 135 mmol/L (135-145)
--- NOTE | 2023-12-09 11:58 | P.CONS ---
History of Present Illness - Reason for Consult Consult date: 12/09/23 Medical management - History of Present Illness History of present illness; patient is 43-year-old gentleman with past medical history significant for morbid obesity, hypertension, GERD who was being followed up outpatient in the bariatric center for morbid obesity. Patient presented to hospital for elective laparoscopic da Desmond assisted sleeve gastrectomy on 12/07. Postoperatively internal medicine team were consulted for medical management REVIEW OF SYSTEMS: CONSTITUTIONAL: No fever, no malaise, no fatigue. HEENT: No recent visual problems or hearing problems. Denied any sore throat. CARDIOVASCULAR: No chest pain, orthopnea, PND, no palpitations, no syncope. PULMONARY: No shortness of breath, no cough, no hemoptysis. GASTROINTESTINAL: No diarrhea, complaining of nausea but no vomiting NEUROLOGICAL: No headaches, no weakness, no numbness. HEMATOLOGICAL: Denies any bleeding or petechiae. GENITOURINARY: Denies any burning micturition, frequency, or urgency. MUSCULOSKELETAL/RHEUMATOLOGICAL: Denies any joint pain, swelling, or any muscle pain. ENDOCRINE: Denies any polyuria or polydipsia. The rest of the 14-point review of systems is negative. PHYSICAL EXAMINATION: GENERAL: The patient is alert and oriented x3, not in any acute distress. Morbidly obese HEENT: Pupils are round and equally reacting to light. EOMI. No scleral icterus. No conjunctival pallor. Normocephalic, atraumatic. No pharyngeal erythema. No thyromegaly. CARDIOVASCULAR: S1 and S2 present. No murmurs, rubs, or gallops. PULMONARY: Chest is clear to auscultation, no wheezing or crackles. ABDOMEN: Soft, nontender, nondistended, normoactive bowel sounds. No palpable organomegaly. Laparoscopic surgical incisions seen MUSCULOSKELETAL: No joint swelling or deformity. EXTREMITIES: No cyanosis, clubbing, or pedal edema. NEUROLOGICAL: Gross neurological examination did not reveal any focal deficits. SKIN: No rashes. Assessment and plan Status post laparoscopic da Desmond assisted sleeve gastrectomy Morbid obesity Hypertension GERD Monitor vital signs Monitor CBC Monitor CMP Continue antiemetics continue IV fluids Advance diet per surgery Resume home meds Labs and medication were reviewed.. Continue same treatment. Continue with symptomatic treatment. Resume home medication. Monitor labs and vitals. DVT and GI prophylaxis. Further recommendations as per clinical course of the patient Dictation was produced using [employer] dictation software. please excuse any grammatical, word or spelling errors. Past Medical History Past Medical History: Hypertension History of Any Multi-Drug Resistant Organisms: None Reported Past Surgical History: Cholecystectomy Additional Past Surgical History / Comment(s): EGD Past Anesthesia/Blood Transfusion Reactions: No Reported Reaction Additional Past Anesthesia/Blood Transfusion Reaction / Comm: no blood transfusion Past Psychological History: Anxiety Additional Psychological History / Comment(s): NO MEDS NEEDED Smoking Status: Never smoker Past Alcohol Use History: Occasional Past Drug Use History: None Reported - Past Family History Mother Family Medical History: No Reported History Medications and Allergies Home Medications Medication Instructions Recorded Confirmed Type Ergocalciferol [Vitamin D2 (1250 50,000 unit PO MOWE 08/05/23 12/04/23 History Mcg = 65755 Iu)] lisinopriL [Zestril] 20 mg PO DAILY 08/05/23 12/04/23 History Calcium Carbonate [Calcium] 600 mg PO DAILY 09/26/23 12/04/23 History Multivitamin [Multivitamins Adult 1 each PO DAILY 09/26/23 12/04/23 History Gummies] Allergies Allergy/AdvReac Type Severity Reaction Status Date / Time codeine AdvReac migraine Verified 12/08/23 08:58 Physical Exam Vitals: Vital Signs Temp Pulse Pulse Pulse Pulse Resp BP 12/09/23 10:15 12/09/23 10:05 76 12/09/23 09:57 78 12/09/23 07:16 98.3 F 73 16 135/75 12/09/23 05:00 77 19 12/09/23 02:14 98.4 F 88 17 116/68 12/08/23 21:34 80 12/08/23 21:11 76 12/08/23 20:05 98.3 F 83 18 165/83 12/08/23 17:03 133/80 12/08/23 16:50 80 12/08/23 16:48 145/82 12/08/23 16:35 79 12/08/23 16:33 121/73 12/08/23 16:18 132/79 12/08/23 15:48 129/73 12/08/23 15:34 84 12/08/23 15:18 97.6 F 97 16 124/76 12/08/23 12:42 67 16 144/65 12/08/23 12:27 76 16 116/52 12/08/23 12:12 65 16 93/49 12/08/23 11:57 97.3 F L 72 16 92/49 Pulse Ox FiO2 12/09/23 10:15 96 12/09/23 10:05 12/09/23 09:57 96 12/09/23 07:16 96 12/09/23 05:00 94 L 12/09/23 02:14 96 12/08/23 21:34 96 12/08/23 21:11 12/08/23 20:05 97 12/08/23 17:03 97 12/08/23 16:50 12/08/23 16:48 98 12/08/23 16:35 96 28 12/08/23 16:33 91 L 12/08/23 16:18 95 12/08/23 15:48 96 12/08/23 15:34 97 12/08/23 15:18 96 12/08/23 12:42 100 12/08/23 12:27 100 12/08/23 12:12 96 12/08/23 11:57 95 Intake and Output 12/08/23 12/09/23 12/09/23 22:59 06:59 14:59 Output Total 150 300 Balance -150 -300 Output: Urine 150 300 Other: Voiding Method Toilet Urinal Weight 144.9 kg Results CBC & Chem 7: 12/09/23 03:37 12/09/23 03:37 Labs: Abnormal Lab Results - Last 24 Hours (Table) 12/09/23 12/09/23 Range/Units 03:37 03:37 WBC 11.57 H (4.50-10.00) X 10*3/uL Immature Gran # 0.05 H (0.00-0.04) X 10*3/uL Neutrophils # 9.55 H (1.80-7.70) X 10*3/uL Eosinophils # 0 L (0.04-0.35) X 10*3/uL Carbon Dioxide 19.7 L (21.6-31.8) mmol/L Anion Gap 13.30 H (4.00-12.00) mmol/L
--- NOTE | 2023-12-09 14:26 | FL ---
SINGLE CONTRAST UPPER GI EXAMINATION: CLINICAL HISTORY: 43-year-old male postop bariatric surgery status sleeve gastrectomy. TECHNIQUE: Single contrast exam performed with 40 mL Isovue-370 contrast. DAP: 1002.79 mGycm2 FLUORO TIME: 1.52 MIN Total images: 33. FINDINGS: The patient swallowed oral contrast without difficulty or delay. There is prompt passage of contrast from the esophagus into the proximal stomach but then with mild delay in passage of contrast across the patient's sleeve gastrectomy. The hesitancy results in some pooling in the distal esophagus with episodes of intraesophageal reflux. Eventual passage of contrast into the distal stomach and proximal duodenum. There is no evidence of contrast extravasation to suggest leak. No post surgical free air. IMPRESSION: Status post sleeve gastrectomy. Relative mild obstruction along the surgical site likely due to some postoperative edema. No evidence of leak or postsurgical free air.
--- NOTE | 2023-12-09 15:37 | P.PN ---
Subjective Progress Note Date: 12/09/23 Principal diagnosis: Morbid obesity Patient doing well today. Still having mild soreness at the extraction site right side of abdomen. No left-sided or epigastric pain. Tolerating ice chips. Upper GI shows mild obstruction through the sleeve. Labs noted. Objective - Vital Signs Vital signs: Vital Signs Temp 98.3 F 12/09/23 13:12 Pulse 87 12/09/23 13:12 Resp 17 12/09/23 13:12 BP 133/79 12/09/23 13:12 Pulse Ox 98 12/09/23 13:12 FiO2 28 12/08/23 16:35 Intake & Output 12/08/23 12/09/23 12/09/23 18:59 06:59 18:59 Intake Total 2000 Output Total 155 300 Balance 1845 -300 Weight 144.9 kg 144.9 kg Intake: IV 1999 Output: Urine 150 300 Estimated Blood Loss 5 Other: Voiding Method Toilet Urinal - Exam Abdomen: Soft, nondistended, incisions clean and dry, mild right upper quadrant tenderness - Labs CBC & Chem 7: 12/09/23 03:37 12/09/23 03:37 Labs: Abnormal Lab Results - Last 24 Hours (Table) 12/09/23 12/09/23 Range/Units 03:37 03:37 WBC 11.57 H (4.50-10.00) X 10*3/uL Immature Gran # 0.05 H (0.00-0.04) X 10*3/uL Neutrophils # 9.55 H (1.80-7.70) X 10*3/uL Eosinophils # 0 L (0.04-0.35) X 10*3/uL Carbon Dioxide 19.7 L (21.6-31.8) mmol/L Anion Gap 13.30 H (4.00-12.00) mmol/L Assessment and Plan (1) Morbid obesity with BMI of 40.0-44.9, adult Narrative/Plan: Patient doing well at this time. Begin bariatric clear liquids. Monitor oral intake. Plan discharge tomorrow if tolerating liquids. Current Visit: Yes Status: Acute Code(s): E66.01 - MORBID (SEVERE) OBESITY DUE TO EXCESS CALORIES; Z68.41 - BODY MASS INDEX [BMI] 40.0-44.9, ADULT SNOMED Code(s): 977421819
[2023-12-09] MEDS: DEXAMETHASONE SOD PHOSPHATE 4 MG/ML 1 ML VIAL IVP SCH (17:34)
[2023-12-10 02:14] VITALS: RESP 17
[2023-12-10 07:29] VITALS: BP 116/74; TEMP 97.9
[2023-12-10] MEDS ORDERED: bisacodyL 5 MG TABLET.DR PO PRN (08:00)
[2023-12-10] MEDS: MULTIVITAMINS, THERA 1 EACH TAB PO SCH (08:21)
[2023-12-10] MEDS: lisinopriL 20 MG TAB PO SCH (08:21)
[2023-12-10] MEDS: KETOROLAC 15 MG/ML 1 ML VIAL IVP SCH (09:25)
[2023-12-10 11:53] VITALS: PULSE 70
--- NOTE | 2023-12-10 16:25 | P.DS ---
Providers Date of admission: 12/09/23 13:41 Expected date of discharge: 12/10/23 Attending physician: Randy Barillas Consults: 12/08/23 11:57 Consult Physician Routine Consulting Provider: Angely Steen Consult Reason/Comments: Medical management Do you want consulting provider notified?: Yes Primary care physician: Mary Jo [place] Hospital Course: Discharge diagnosis 1. Morbid obesity Hospital course This is a 43-year-old male with history of morbid obesity and hypertension. He is status post da Desmond assisted laparoscopic sleeve gastrectomy. Upper GI reported mild obstruction. Patient is tolerating diet. He is having flatus. Denies any difficulty urinating. He has been up and ambulating. His pain is controlled. He is afebrile. He is stable for discharge. Please refer to chart for any further details. Physician Train Control Technician note has been reviewed by physician. Signing provider agrees with the documented findings, assessment, and plan of care. Patient Condition at Discharge: Stable Plan - Discharge Summary Discharge Rx Participant: Yes New Discharge Prescriptions: New bisacodyL [Dulcolax] 5 mg PO DAILY PRN #10 tab PRN Reason: Constipation Omeprazole [PriLOSEC] 20 mg PO DAILY #90 cap Simethicone 40 mg/0.6 ml Drops [Mylicon Drops] 40 mg PO PCHS PRN #30 ml PRN Reason: Gas Ondansetron Odt [Zofran Odt] 4 mg PO Q8HR PRN #20 tab PRN Reason: Nausea No Action Ergocalciferol [Vitamin D2 (1250 Mcg = 20796 Iu)] 50,000 unit PO MOWE Calcium Carbonate [Calcium] 600 mg PO DAILY lisinopriL [Zestril] 20 mg PO DAILY Multivitamin [Multivitamins Adult Gummies] 1 each PO DAILY Discharge Medication List Ergocalciferol [Vitamin D2 (1250 Mcg = 95984 Iu)] 50,000 unit PO MOWE 08/05/23 [History] lisinopriL [Zestril] 20 mg PO DAILY 08/05/23 [History] Calcium Carbonate [Calcium] 600 mg PO DAILY 09/26/23 [History] Multivitamin [Multivitamins Adult Gummies] 1 each PO DAILY 09/26/23 [History] Omeprazole [PriLOSEC] 20 mg PO DAILY #90 cap 12/10/23 [Rx] Ondansetron Odt [Zofran Odt] 4 mg PO Q8HR PRN #20 tab 12/10/23 [Rx] Simethicone 40 mg/0.6 ml Drops [Mylicon Drops] 40 mg PO PCHS PRN #30 ml 12/10/23 [Rx] bisacodyL [Dulcolax] 5 mg PO DAILY PRN #10 tab 12/10/23 [Rx] Follow up Appointment(s)/Referral(s): Mary Jo Ceballos MD [Primary Care Provider] - 1 Week Patient Instructions/Handouts: Laparoscopic Sleeve Gastrectomy (DC) Activity/Diet/Wound Care/Special Instructions: Following up friday with bariatric center Discharge Disposition: HOME SELF-CARE
== END 2023-12-10 12:32 | disposition home or self-care (01) ==
LOC: OR 08:43 → 4SSUR 11:52 → OR 12-09 13:41
PROVIDERS: ADMIT Surgery; ATTEND Surgery
DX: E66.01 Morbid (severe) obesity due to excess calories (principal); Z68.41 Body mass index [BMI] 40.0-44.9, adult; K95.89 Other complications of other bariatric procedure; I10 Essential (primary) hypertension; K21.9 Gastro-esophageal reflux disease without esophagitis; G47.33 Obstructive sleep apnea (adult) (pediatric); Z79.899 Other long term (current) drug therapy; Z88.5 Allergy status to narcotic agent; Z87.442 Personal history of urinary calculi; Z90.49 Acquired absence of other specified parts of digestive tract; Z98.890 Other specified postprocedural states
CPT/HCPCS: 43775; S2900; 74240; 80051; 82310; 82565; 83735; 84100; 84520; 85025; 88307; 94640; 94760; 94762; 96372

== ENCOUNTER → 2023-12-12 | Outpatient (CLI) | payer BC ==
[2023-12-12 10:29] VITALS: BP 119/81; PULSE 81; RESP 14; TEMP 98; BMI 38.6
== END ==
LOC: BARWHC3 09:44
PROVIDERS: ATTEND Surgery
DX: E66.01 Morbid (severe) obesity due to excess calories (principal); Z88.5 Allergy status to narcotic agent; Z68.38 Body mass index [BMI] 38.0-38.9, adult
CPT/HCPCS: 99211

== ENCOUNTER → 2023-12-16 | Outpatient (CLI) | payer BC ==
[2023-12-16 13:06] VITALS: BP 125/73; PULSE 85; RESP 16; TEMP 97.6; BMI 38.0
--- NOTE | 2023-12-16 14:57 | P.BASOAP ---
Subjective Progress Note Date: 12/16/23 Principal diagnosis: Morbid obesity Patient returns for recheck. Underwent sleeve gastrectomy 1 week ago. Overall doing well. Excellent fluid and protein intake. Mild pain at the extraction site when active up to 3 out of 10 in severity. He has lost 12 pounds since surgery. Heart rate normal. No fevers. Patient does have a small area of numbness anterior right thigh. First noticed last Friday. Objective - Vital Signs Vital signs: Vital Signs Temp 97.6 F 12/16/23 13:03 Pulse 85 12/16/23 13:03 Resp 16 12/16/23 13:03 BP 125/73 12/16/23 13:03 Pulse Ox FiO2 Intake & Output 12/15/23 12/16/23 12/16/23 18:59 06:59 18:59 Weight 137.892 kg - Exam Abdomen: Soft, nontender, nondistended, incisions clean and dry Assessment/Plan (1) Morbid obesity with BMI of 40.0-44.9, adult Narrative/Plan: 43-year-old male doing well after recent sleeve gastrectomy. Continue dietary advancement as per schedule. Continue encouraging liquid and protein intake. Monitor area of numbness on the right side likely related to intraoperative positioning with positioning strap. Follow-up 2 weeks. Plan: Date: 12/16/23 Initial Weight: 149.685 kg Initial BMI: 41.2 Current Weight: 137.892 kg Current BMI: 38.0 Type of Surgery: Vertical Sleeve Gastrectomy Total Volume in Band: Previous Volume: Volume Removed: Volume Added: Band Size:
== END ==
LOC: BARWHC3 12:54
PROVIDERS: ATTEND Surgery
DX: E66.01 Morbid (severe) obesity due to excess calories (principal); Z71.3 Dietary counseling and surveillance; Z90.3 Acquired absence of stomach [part of]; Z88.5 Allergy status to narcotic agent; Z68.38 Body mass index [BMI] 38.0-38.9, adult
CPT/HCPCS: 97802; 99211

== ENCOUNTER → 2023-12-23 | Outpatient (CLI) | payer BC ==
[2023-12-23 12:51] VITALS: BP 106/74; PULSE 85; RESP 16; TEMP 98.2
[2023-12-23] MEDS: SODIUM CHLORIDE 0.9% 1,000 ML IV SCH (12:57)
--- NOTE | 2023-12-23 13:16 | P.BASOAP ---
Subjective Progress Note Date: 12/23/23 Principal diagnosis: Dehydration 43-year-old male presents with complaints of a headache and dehydration. Yesterday he says he struggled to get liquids and although by the end of the night he had about 60 ounces of intake. He said he felt a headache and some darker urine. His heart rate felt a little faster yesterday. Today when he woke up he said he felt better. He has been tolerating liquids better today. No nausea or vomiting. Because of his complaints we decided to bring him in today for some fluids. Denies pain. He is afebrile. Objective - Vital Signs Vital signs: Vital Signs Temp 98.2 F 12/23/23 12:48 Pulse 85 12/23/23 12:48 Resp 16 12/23/23 12:48 BP 106/74 12/23/23 12:48 Pulse Ox FiO2 Intake & Output 12/22/23 12/23/23 12/23/23 18:59 06:59 18:59 Weight 136.078 kg - Exam Abdomen: Soft, nondistended, incisions clean and dry, nontender Assessment/Plan (1) Morbid obesity with BMI of 40.0-44.9, adult Narrative/Plan: Patient doing well today. Was definitely dehydrated yesterday. Agree with IV hydration. Will recheck by phone 24 to 48 hours Plan: Date: 12/23/23 Initial Weight: 149.685 kg Initial BMI: Current Weight: 136.078 kg Current BMI: Type of Surgery: Total Volume in Band: Previous Volume: Volume Removed: Volume Added: Band Size:
== END ==
LOC: PROCWHC3 12:36
PROVIDERS: ATTEND Surgery
DX: E86.0 Dehydration (principal)
CPT/HCPCS: 96360; 96361

== ENCOUNTER → 2023-12-30 | Outpatient (CLI) | payer BC ==
[2023-12-30 13:11] VITALS: BP 117/78; PULSE 71; TEMP 98; BMI 37.1
--- NOTE | 2023-12-30 14:45 | P.BASOAP ---
Subjective Progress Note Date: 12/30/23 Principal diagnosis: Morbid obesity Patient returns for recheck. Doing well since last visit. Good volume of liquids. Has had a few episodes of feeling lightheaded. Blood pressure has been 90-1 10 systolic with lisinopril 10 mg daily. Good protein intake. Minimal pain at extraction site. Objective - Vital Signs Vital signs: Vital Signs Temp 98 F 12/30/23 13:07 Pulse 71 12/30/23 13:07 Resp BP 117/78 12/30/23 13:07 Pulse Ox FiO2 Intake & Output 12/29/23 12/30/23 12/30/23 18:59 06:59 18:59 Weight 134.717 kg - Exam Abdomen: Soft, nontender, nondistended Assessment/Plan (1) Morbid obesity with BMI of 40.0-44.9, adult Narrative/Plan: Patient doing well at this time. Continue antiacids for now. Check 1 month labs. Follow-up 4 to 6 weeks. Plan: Date: 12/30/23 Initial Weight: 149.685 kg Initial BMI: 41.2 Current Weight: 134.717 kg Current BMI: 37.1 Type of Surgery: Total Volume in Band: Previous Volume: Volume Removed: Volume Added: Band Size:
== END ==
LOC: BARWHC3 12:51
PROVIDERS: ATTEND Surgery
DX: E66.01 Morbid (severe) obesity due to excess calories (principal); Z68.41 Body mass index [BMI] 40.0-44.9, adult; Z88.5 Allergy status to narcotic agent; Z71.3 Dietary counseling and surveillance
CPT/HCPCS: 97803; 99211

== ENCOUNTER → 2024-01-10 | Outpatient (CLI) | payer BC ==
[2024-01-10 12:38] LABS: HCT 44.8 % (39.6-50.0); HGB 14.8 g/dL (13.0-17.0); MCH 29.8 pg (27.0-32.0); MCV 90.1 FL (80.0-97.0); NRBC Per 100 WBC 0 X 10*3/uL (0.00-0.01); Platelet Count 310 X 10*3/uL (140-440); RBC 4.97 X 10*6/uL (4.40-5.60); RDW 13.2 % (11.5-14.5); WBC 5.53 X 10*3/uL (4.50-10.00)
[2024-01-10 13:06] LABS: BUN/Creat Ratio 17.78 Ratio (12.00-20.00); Glucose 83 mg/dL (70-110); Iron 86 UG/DL (65-175)
[2024-01-10 13:07] LABS: ALT 49 U/L (10-49); AST 32 U/L (14-35); Albumin 4.3 g/dL (3.8-4.9); Albumin/Globulin Ratio 1.95 Ratio (1.60-3.17); Alkaline Phosphatase 98 U/L (41-126); Calcium 9.5 mg/dL (8.7-10.3); Chloride 105 mmol/L (96-109); Globulin 2.2 g/dL (1.6-3.3); Potassium 4.2 mmol/L (3.5-5.5); Sodium 141 mmol/L (135-145); Total Bilirubin 0.5 mg/dL (0.3-1.2); Total Protein 6.5 g/dL (6.2-8.2)
== END | disposition home or self-care (01) ==
LOC: LABWHC1 08:07
PROVIDERS: ATTEND Surgery
DX: E66.01 Morbid (severe) obesity due to excess calories (principal); E55.9 Vitamin D deficiency, unspecified; K90.89 Other intestinal malabsorption
CPT/HCPCS: 36415; 80053; 82306; 82607; 82746; 83540; 84425; 85027

== ENCOUNTER → 2024-02-10 | Outpatient (CLI) | payer BC | LOC: BARWHC3 13:00 | PROVIDERS: ATTEND Surgery | DX: E66.01 Morbid (severe) obesity due to excess calories (principal); Z98.84 Bariatric surgery status; Z88.5 Allergy status to narcotic agent | CPT/HCPCS: 99211 ==

== ENCOUNTER 2024-03-22 17:17 | Emergency (ER) | payer BC ==
[2024-03-22 17:21] VITALS: RESP 18
--- NOTE | 2024-03-22 17:57 | XR ---
EXAMINATION TYPE: XR hand complete LT DATE OF EXAM: 03/22/2024 COMPARISON: None HISTORY: Foreign body anterior right hand TECHNIQUE: 3 views left hand FINDINGS: There is a metallic foreign body directed towards the proximal carpal row within the colon the hand. The tip of this nail may be within the hamate. No displaced fractures evident. Distal digits appear intact IMPRESSION: 1. Now within the proximal pole left hand. Tip of the nail may be within the hamate [facility], , 03/22/2024 5:55 PM
--- NOTE | 2024-03-22 18:05 | ED ---
Skin/Abscess/FB HPI - General Chief complaint: Skin/Abscess/Foreign Body Stated complaint: L hand injury Time Seen by Provider: 03/22/24 17:39 Source: patient, RN notes reviewed Mode of arrival: ambulatory Limitations: no limitations - History of Present Illness Initial comments: 43-year-old male presents emergency department chief complaint of a nail in his left hand. Patient states that he was using a nail gun to build a outdoor shed when he accidentally punctured part of the nail into his left hand. Patient states that he attempted to remove the nail at home with no relief. Patient endorses pain around the area. He denies paresthesias or loss of motor function. He is unaware of when his last tetanus vaccination was. No other acute complaints at this time. - Related Data Home Medications Medication Instructions Recorded Confirmed Ergocalciferol [Vitamin D2 (1250 50,000 unit PO MOWE 08/05/23 12/30/23 Mcg = 49036 Iu)] lisinopriL [Zestril] 10 mg PO DAILY 08/05/23 12/30/23 Calcium Carbonate [Calcium] 600 mg PO DAILY 09/26/23 12/30/23 Multivitamin [Multivitamins Adult 1 each PO DAILY 09/26/23 12/30/23 Gummies] Previous Rx's Medication Instructions Recorded Omeprazole [PriLOSEC] 20 mg PO DAILY #90 cap 12/10/23 Ciprofloxacin HCl [Cipro] 500 mg PO Q12HR #20 tablet 03/22/24 Allergies Allergy/AdvReac Type Severity Reaction Status Date / Time codeine AdvReac migraine Verified 03/22/24 17:21 Review of Systems ROS Statement: Those systems with pertinent positive or pertinent negative responses have been documented in the HPI. ROS Other: All systems not noted in ROS Statement are negative. Past Medical History Past Medical History: Hypertension History of Any Multi-Drug Resistant Organisms: None Reported Past Surgical History: Bariatric Surgery, Cholecystectomy Additional Past Surgical History / Comment(s): EGD. Sleeve gastrectomy 12-08-23 Past Anesthesia/Blood Transfusion Reactions: No Reported Reaction Additional Past Anesthesia/Blood Transfusion Reaction / Comment(s): no blood transfusion Past Psychological History: Anxiety Smoking Status: Never smoker Past Alcohol Use History: Occasional Past Drug Use History: None Reported - Past Family History Mother Family Medical History: No Reported History General Exam Limitations: no limitations General appearance: alert, in no apparent distress ENT exam: Present: normal exam, mucous membranes moist Neck exam: Present: normal inspection. Absent: tenderness, meningismus, lymphadenopathy Respiratory exam: Present: normal lung sounds bilaterally. Absent: respiratory distress, wheezes, rales, rhonchi, stridor Cardiovascular Exam: Present: regular rate, normal rhythm, normal heart sounds. Absent: systolic murmur, diastolic murmur, rubs, gallop, clicks GI/Abdominal exam: Present: soft, normal bowel sounds. Absent: distended, tenderness, guarding, rebound, rigid Left Hand Wrist exam: Present: tenderness, other (0.25 cm diameter nail into the palmar mid surface, no active bleeding) Neuro motor exam: Present: wrist extension intact, thumb opposition intact Vascular: Present: normal capillary refill, radial pulse (2+). Absent: vascular compromise Back exam: Present: normal inspection Skin exam: Present: warm, dry, intact, normal color. Absent: rash Course Vital Signs 03/22/24 03/22/24 17:18 18:59 Temperature 98.4 F 97.9 F Pulse Rate 72 65 Respiratory 18 18 Rate Blood Pressure 155/82 127/81 O2 Sat by Pulse 100 99 Oximetry Medical Decision Making - Medical Decision Making Was pt. sent in by a medical professional or institution (, PA, UNDERWEAR FINISHER, urgent care, hospital, or intermediate...) When possible be specific @ -No Did you speak to anyone other than the patient for history (EMS, parent, family, police, friend...)? What history was obtained from this source @ -No Did you review nursing and triage notes (agree or disagree)? Why? @ -I reviewed and agree with nursing and triage notes Were old charts reviewed (outside hosp., previous admission, EMS record, old EKG, old radiological studies, urgent care reports/EKG's, intermediate records)? Report findings @ -No old charts were reviewed Differential Diagnosis (chest pain, altered mental status, abdominal pain women, abdominal pain men, vaginal bleeding, weakness, fever, dyspnea, syncope, headache, dizziness, GI bleed, back pain, seizure, CVA, palpatations, mental health, musculoskeletal)? @ -Foreign body in soft tissue, open laceration, puncture wound, cyst not all inclusive EKG interpreted by me (3pts min.). @ -None X-rays interpreted by me (1pt min.). @ -XR left hand reveals nail within the proximal pole of the left hand and tip of the nail may be within the hamate CT interpreted by me (1pt min.). @ -None done U/S interpreted by me (1pt. min.). @ -None done What testing was considered but not performed or refused? (CT, X-rays, U/S, labs)? Why? @ -None What meds were considered but not given or refused? Why? @ -None Did you discuss the management of the patient with other professionals (professionals i.e. DrMickey, PA, UNDERWEAR FINISHER, lab, RT, psych nurse, social media content manager, regional forester, teacher, special assets officer, field nurse case manager)? Give summary @ -No Was smoking cessation discussed for >3mins.? @ -No Was critical care preformed (if so, how long)? @ -No Were there social determinants of health that impacted care today? How? (Homelessness, low income, unemployed, alcoholism, drug addiction, transportation, low edu. Level, literacy, decrease access to med. care, correction, rehab)? @ -No Was there de-escalation of care discussed even if they declined (Discuss DNR or withdrawal of care, Hospice)? DNR status @ -No What co-morbidities impacted this encounter? (DM, HTN, Smoking, COPD, CAD, Cancer, CVA, ARF, Chemo, Hep., AIDS, mental health diagnosis, sleep apnea, morbid obesity)? @ -None Was patient admitted / discharged? Hospital course, mention meds given and route, prescriptions, significant lab abnormalities, going to OR and other pertinent info. @ -Discharge. 43-year-old male with nail in left hand. On my evaluation of the patient there is noted to be a nail of the left hand, patient is neurovascularly intact. X-ray remarkable for new over the proximal pole of the left hand. Is recommended by attending Dr. Jiang to use lidocaine over the affected area and apply pressure to remove the nail. Pliers were used to assist actually remove the nail with no complications. Pressure was applied and wound was irrigated with sterile water. Dressing placed over top and patient is sent a prescription for ciprofloxacin. He is also provided with his tetanus vaccination. All questions answered at bedside and strict return prior discussed with the patient is verbalized understanding. Case discussed with Dr. Kirby Undiagnosed new problem with uncertain prognosis? @ -No Drug Therapy requiring intensive monitoring for toxicity (Heparin, Nitro, Insulin, Cardizem)? @ -No Were any procedures done? @ -No Diagnosis/symptom? @ -soft tissue in foreign body, puncture wound Acute, or Chronic, or Acute on Chronic? @ -acute Uncomplicated (without systemic symptoms) or Complicated (systemic symptoms)? @ -uncomplicated Side effects of treatment? @ -No Exacerbation, Progression, or Severe Exacerbation? @ -No Poses a threat to life or bodily function? How? (Chest pain, [place], [place], pneumonia, PE, COPD, DKA, ARF, appy, cholecystitis, CVA, Diverticulitis, Homicidal, Suicidal, threat to staff... and all critical care pts) @ -No Disposition Clinical Impression: Foreign body in soft tissue Disposition: HOME SELF-CARE Condition: Good Instructions (If sedation given, give patient instructions): Soft Tissue Foreign Body (ED), Puncture Wound (ED) Additional Instructions: Return to emergency room for any new or worsening symptoms. Recommend that you continue full course of antibiotics as prescribed. Ice affected area, use Tylenol and Motrin as needed. Prescriptions: Ciprofloxacin HCl [Cipro] 500 mg PO Q12HR #20 tablet Is patient prescribed a controlled substance at d/c from ED?: No Referrals: Mary Jo Ceballos MD [Primary Care Provider] - 1-2 days Time of Disposition: 18:34
[2024-03-22] MEDS: DIPH,PERTUS(ACELL)TETVAC-LF 0.5 ML VIAL IM ONE (18:06)
[2024-03-22] MEDS: LIDOCAINE 1% INJ 10MG/ML (20 ML MDV) SQ ONE (18:13)
[2024-03-22 19:00] VITALS: BP 127/81; PULSE 65; TEMP 97.9
== END 2024-03-22 19:00 | disposition home or self-care (01) ==
LOC: EC 17:17
CPT/HCPCS: 90471; 90715; 99283

== ENCOUNTER → 2024-04-06 | Outpatient (CLI) | payer BC ==
[2024-04-06 13:15] VITALS: BP 108/82; PULSE 62; TEMP 97.9; BMI 32.3
--- NOTE | 2024-04-06 17:02 | P.BASOAP ---
Subjective Progress Note Date: 04/06/24 Principal diagnosis: Morbid obesity Patient returns for recheck. Last seen 1 month ago or so. Patient has done well with his weight loss. Currently 259. He is due for 3-month labs. No antiacids for the last 2 weeks. No nausea or vomiting. No heartburn. Patient plans to start swimming soon. Objective - Vital Signs Vital signs: Vital Signs Temp 97.9 F 04/06/24 13:12 Pulse 62 04/06/24 13:12 Resp BP 108/82 04/06/24 13:12 Pulse Ox FiO2 Intake & Output 04/05/24 04/06/24 04/06/24 18:59 06:59 18:59 Weight 117.48 kg - Exam Abdomen: Soft, nontender, nondistended Assessment/Plan (1) Morbid obesity with BMI of 40.0-44.9, adult Narrative/Plan: 43-year-old male doing well after prior sleeve gastrectomy. Continue dietary and exercise regimen. No further antiacids at this time. Check 3-month labs. Follow-up 6 weeks. Plan: Date: 04/06/24 Initial Weight: 149.685 kg Initial BMI: 41.2 Current Weight: 117.48 kg Current BMI: 32.3 Type of Surgery: Total Volume in Band: Previous Volume: Volume Removed: Volume Added: Band Size:
== END ==
LOC: BARWHC3 12:58
PROVIDERS: ATTEND Surgery
CPT/HCPCS: 99211

== ENCOUNTER → 2024-05-20 | Outpatient (CLI) | payer BC ==
[2024-05-20 15:56] LABS: HCT 45.5 % (39.6-50.0); HGB 14.8 g/dL (13.0-17.0); MCH 30.1 pg (27.0-32.0); MCHC 32.5 g/dL (32.0-37.0); MCV 92.5 FL (80.0-97.0); Mean Platelet Volume 10.3 FL (9.5-12.2); NRBC Per 100 WBC 0 X 10*3/uL (0.00-0.01); Platelet Count 343 X 10*3/uL (140-440); RBC 4.92 X 10*6/uL (4.40-5.60); RDW 13.2 % (11.5-14.5); WBC 5.91 X 10*3/uL (4.50-10.00)
[2024-05-20 16:21] LABS: ALT 23 U/L (10-49); AST 24 U/L (14-35); Albumin/Globulin Ratio 1.82 Ratio (1.60-3.17); Alkaline Phosphatase 110 U/L (41-126); BUN/Creat Ratio 17.56 Ratio (12.00-20.00); Blood Urea Nitrogen 15.8 mg/dL (9.0-27.0); Calcium 9.7 mg/dL (8.7-10.3); Carbon Dioxide 24.9 mmol/L (21.6-31.8); Chloride 107 mmol/L (96-109); Globulin 2.2 g/dL (1.6-3.3); Glucose 77 mg/dL (70-110); Iron 113 UG/DL (65-175); Potassium 4.2 mmol/L (3.5-5.5); Sodium 142 mmol/L (135-145); Total Bilirubin 0.5 mg/dL (0.3-1.2); Total Protein 6.2 g/dL (6.2-8.2)
== END | disposition home or self-care (01) ==
LOC: LABWHC1 08:52
PROVIDERS: ATTEND Surgery
DX: E55.9 Vitamin D deficiency, unspecified (principal); K90.89 Other intestinal malabsorption
CPT/HCPCS: 36415; 80053; 82306; 82607; 82746; 83540; 84425; 85027

== ENCOUNTER → 2024-06-08 | Outpatient (CLI) | payer BC ==
[2024-06-08 14:03] VITALS: BP 132/77; PULSE 72; RESP 16; TEMP 97.6; BMI 29.6
--- NOTE | 2024-06-08 14:28 | P.BASOAP ---
Subjective Progress Note Date: 06/08/24 Principal diagnosis: Morbid obesity Patient returns for recheck. Doing well since last visit. He is 6 months post sleeve gastrectomy. BMI down to 29. 20 pound weight loss since last visit. No nausea or vomiting. Exercising quite a bit more. Lifting weights 3-4 times per week. Able to do 2 pull-ups recently. No antiacid use. Objective - Vital Signs Vital signs: Vital Signs Temp 97.6 F 06/08/24 14:01 Pulse 72 06/08/24 14:01 Resp 16 06/08/24 14:01 BP 132/77 06/08/24 14:01 Pulse Ox FiO2 Intake & Output 06/07/24 06/08/24 06/08/24 18:59 06:59 18:59 Weight 107.501 kg - Exam Abdomen: Soft, nontender, nondistended Assessment/Plan (1) Morbid obesity with BMI of 40.0-44.9, adult Narrative/Plan: 44-year-old male doing well after previous sleeve gastrectomy. Continue exercise and dietary regimen. Continue multivitamin. Recheck 6 to 8 weeks. Check 6-month labs at that time. Plan: Date: 06/08/24 Initial Weight: 149.685 kg Initial BMI: 41.2 Current Weight: 107.501 kg Current BMI: 29.6 Type of Surgery: Vertical Sleeve Gastrectomy Total Volume in Band: Previous Volume: Volume Removed: Volume Added: Band Size:
== END ==
LOC: BARWHC3 13:20
PROVIDERS: ATTEND Surgery
DX: E66.01 Morbid (severe) obesity due to excess calories (principal); Z68.29 Body mass index [BMI] 29.0-29.9, adult; Z88.5 Allergy status to narcotic agent
CPT/HCPCS: 99211

== ENCOUNTER → 2024-07-13 | Outpatient (CLI) | payer BC ==
[2024-07-13 13:18] VITALS: BP 128/85; PULSE 79; RESP 16; TEMP 97.5; BMI 29.6
--- NOTE | 2024-07-13 13:26 | P.BASOAP ---
Subjective Progress Note Date: 07/13/24 Principal diagnosis: Morbid obesity Patient returns for recheck. Doing well. Weight unchanged. No nausea vomiting. No heartburn. No antiacid use. Due for 6-month labs. Only taking multivitamins. Objective - Vital Signs Vital signs: Vital Signs Temp 97.5 F L 07/13/24 13:15 Pulse 79 07/13/24 13:15 Resp 16 07/13/24 13:15 BP 128/85 07/13/24 13:15 Pulse Ox FiO2 Intake & Output 07/12/24 07/13/24 07/13/24 18:59 06:59 18:59 Weight 107.501 kg - Exam Abdomen: Soft, nontender, nondistended Assessment/Plan (1) Morbid obesity with BMI of 40.0-44.9, adult Narrative/Plan: Patient doing well after sleeve gastrectomy in December. Continue dietary and exercise regimen. Check 6-month labs. Follow-up 2 months. Plan: Date: 07/13/24 Initial Weight: 149.685 kg Initial BMI: 41.2 Current Weight: 107.501 kg Current BMI: 29.6 Type of Surgery: Vertical Sleeve Gastrectomy Total Volume in Band: Previous Volume: Volume Removed: Volume Added: Band Size:
[2024-07-13 20:04] LABS: HCT 48.2 % (39.6-50.0); HGB 15.1 g/dL (13.0-17.0); MCH 28.5 pg (27.0-32.0); MCHC 31.3 g/dL (32.0-37.0); MCV 90.9 FL (80.0-97.0); Mean Platelet Volume 10.1 FL (9.5-12.2); NRBC Per 100 WBC 0 X 10*3/uL (0.00-0.01); Platelet Count 359 X 10*3/uL (140-440); RDW 13.3 % (11.5-14.5)
[2024-07-13 22:43] LABS: ALT 20 U/L (10-49); AST 23 U/L (14-35); Albumin 4.1 g/dL (3.8-4.9); Albumin/Globulin Ratio 1.78 Ratio (1.60-3.17); Alkaline Phosphatase 114 U/L (41-126); Blood Urea Nitrogen 16.7 mg/dL (9.0-27.0); Calcium 9.3 mg/dL (8.7-10.3); Carbon Dioxide 25.7 mmol/L (21.6-31.8); Chloride 107 mmol/L (96-109); Globulin 2.3 g/dL (1.6-3.3); Glucose 88 mg/dL (70-110); Iron 140 UG/DL (65-175); Potassium 4.1 mmol/L (3.5-5.5); Sodium 143 mmol/L (135-145); Total Bilirubin 0.4 mg/dL (0.3-1.2); Total Protein 6.4 g/dL (6.2-8.2)
== END ==
LOC: BARWHC3 13:10
PROVIDERS: ATTEND Surgery
DX: E66.01 Morbid (severe) obesity due to excess calories (principal); K21.9 Gastro-esophageal reflux disease without esophagitis; Z68.41 Body mass index [BMI] 40.0-44.9, adult; Z71.3 Dietary counseling and surveillance; Z88.5 Allergy status to narcotic agent
CPT/HCPCS: 80053; 82306; 82607; 82746; 83540; 84425; 85027

== ENCOUNTER → 2024-09-01 | Outpatient (CLI) | payer OTHER ==
--- NOTE | 2024-09-01 10:16 | XR ---
EXAMINATION TYPE: XR hand complete LT, XR wrist complete LT DATE OF EXAM: 09/01/2024 10:11 AM COMPARISON: Prior left hand x-ray March 22, 2024 CLINICAL INDICATION: Male, 44 years old with history of S63.002A UNSPECIFIED SUBLUXATION OF LEFT WRIS T AND, pain TECHNIQUE: Frontal, lateral and oblique images of the left wrist and hand are obtained. Additional f ourth scaphoid view left wrist. FINDINGS: No acute displaced fracture in the left wrist. Carpal joint spaces are preserved. There is no acute fracture/dislocation evident in the left hand. The joint spaces in the left hand appear wit hin normal limits. The overlying soft tissue appears unremarkable. IMPRESSION: Unremarkable studies. [facility], , 09/01/2024 10:13 AM
== END | disposition home or self-care (01) ==
LOC: RADXRMAIN 09:49
PROVIDERS: ATTEND Emergency Medicine
DX: S63.002A Unspecified subluxation of left wrist and hand, initial encounter (principal); X58.XXXA Exposure to other specified factors, initial encounter

== ENCOUNTER → 2024-09-14 | Outpatient (CLI) | payer BC ==
[2024-09-14 13:29] VITALS: BP 145/89; PULSE 61; RESP 16; TEMP 98.1; BMI 29.5
--- NOTE | 2024-09-14 13:48 | P.BASOAP ---
Subjective Progress Note Date: 09/14/24 Principal diagnosis: Morbid obesity Patient returns for recheck. Last seen 2 months ago. Patient had some stressful work related things going on and he said he lost about 10 pounds as a result of that. He was not eating in a healthy manner he said at the time and was getting by with coffee and snacks. Patient has had that stress relieved since then and has put some weight back on but feels much better. He was taking some Motrin for a left wrist injury and took some omeprazole prophylactically at the time. Denies nausea vomiting. No GERD. Labs checked in July. Those labs looked good with the exception of a slightly low vitamin D. Objective - Vital Signs Vital signs: Vital Signs Temp 98.1 F 09/14/24 13:26 Pulse 61 09/14/24 13:26 Resp 16 09/14/24 13:26 BP 145/89 09/14/24 13:26 Pulse Ox FiO2 Intake & Output 09/13/24 09/14/24 09/14/24 18:59 06:59 18:59 Weight 107.048 kg - Exam Abdomen: Soft, nontender, nondistended Assessment/Plan (1) Morbid obesity with BMI of 40.0-44.9, adult Narrative/Plan: 44-year-old male doing well after previous sleeve gastrectomy. Continue dietary and exercise regimen. Continue as needed antiacids. Follow-up in December. Check 1 year labs at that time. Plan: Date: 09/14/24 Initial Weight: 149.685 kg Initial BMI: 41.2 Current Weight: 107.048 kg Current BMI: 29.5 Type of Surgery: Vertical Sleeve Gastrectomy Total Volume in Band: Previous Volume: Volume Removed: Volume Added: Band Size:
== END ==
LOC: BARWHC3 13:20
PROVIDERS: ATTEND Surgery
DX: E66.01 Morbid (severe) obesity due to excess calories (principal); Z68.41 Body mass index [BMI] 40.0-44.9, adult; Z88.5 Allergy status to narcotic agent
CPT/HCPCS: 97803; 99211

== ENCOUNTER 2024-11-05 13:43 | Emergency (ER) | payer BC ==
[2024-11-05] MEDS: SODIUM CHLORIDE 0.9% 1,000 ML IV ONE (15:31)
[2024-11-05] MEDS: ONDANSETRON 4 MG/2 ML VIAL IVP STA ×2 (15:32→18:09)
[2024-11-05] MEDS: PANTOPRAZOLE 40 MG/10 ML VIAL IVP STA (15:32)
[2024-11-05] MEDS: KETOROLAC 15 MG/ML 1 ML VIAL IVP STA (15:32)
--- NOTE | 2024-11-05 15:50 | XR ---
EXAMINATION TYPE: XR chest 2V DATE OF EXAM: 11/05/2024 3:46 PM COMPARISON: 08/03/2024 CLINICAL INDICATION: Male, 44 years old with history of abdominal pain, , TECHNIQUE: AP and lateral views FINDINGS: The cardiomediastinal silhouette, aorta, and pulmonary vasculature are within normal limits. Lungs an d pleural spaces are clear. IMPRESSION: No acute cardiopulmonary process. [facility], Workstation: [email or web address], 11/05/2024 3:48 PM
[2024-11-05 16:15] LABS: Basophils # (A) 0.09 10*3/uL (0.00-0.10); Basophils % (A) 0.6 %; Eosinophils # (A) 0.14 10*3/uL (0.04-0.35); Eosinophils % (A) 0.9 %; HGB 16.5 g/dL (13.0-17.0); Lymphocytes # (A) 0.41 10*3/uL (0.90-5.00); Lymphocytes % (A) 2.7 %; MCH 31.2 pg (27.0-32.0); MCHC 35.1 g/dL (32.0-37.0); MCV 88.8 fL (80.0-97.0); Mean Platelet Volume 9.4 fL (9.5-12.2); Monocytes # (A) 0.66 10*3/uL (0.20-1.00); Monocytes % (A) 4.4 %; Neutrophils # (A) 13.58 10*3/uL (1.80-7.70); Neutrophils % (A) 91.1 %; Platelet Count 332 10*3/uL (140-440); RBC 5.29 10*6/uL (4.40-5.60); WBC 14.92 10*3/uL (4.50-10.00)
--- NOTE | 2024-11-05 16:19 | CT ---
EXAMINATION TYPE: CT abdomen pelvis w con CT DLP: 1326.2 mGycm, Automated exposure control for dose reduction was used. DATE OF EXAM: 11/05/2024 4:10 PM COMPARISON: Fluoroscopic upper GI 12/09/2023 CLINICAL INDICATION:Male, 44 years old with history of abdominal pain. epigastric. History of sleeve. ; Epigastric pain. Hx of gastric sleeve. TECHNIQUE: Standard CT of the abdomen and pelvis following the administration of 100 cc of Isovue 3 00 IV contrast material. Coronal and sagittal reformats were performed. FINDINGS: LOWER CHEST: Unremarkable ABDOMEN LIVER: Unremarkable GALLBLADDER AND BILE DUCTS: The gallbladder is surgically absent. No biliary ductal dilatation. PANCREAS: Unremarkable. SPLEEN: Unremarkable. ADRENAL GLANDS: Unremarkable. KIDNEYS AND URETERS: No evidence of hydronephrosis or renal calculus. The kidneys enhance symmetrical ly. Contrast is demonstrated within both collecting systems on delayed phase. Subcentimeter hypodense foci within left kidney which are too small to characterize but likely represent cysts. No follow-up recommended. PELVIS BLADDER: Unremarkable REPRODUCTIVE: Unremarkable. ABDOMEN & PELVIS STOMACH AND BOWEL: Postsurgical changes from gastric sleeve.Diffusely fluid filled nondilated small b owel and large bowel identified. No significant wall thickening or surrounding inflammatory changes. The appendix is not identified. No evidence of bowel obstruction. PERITONEUM: No evidence of pneumoperitoneum or free fluid. VASCULATURE: No evidence of aortic aneurysm. MUSCULOSKELETAL: No acute osseous abnormalities LYMPH NODES: No evidence for lymphadenopathy. SOFT TISSUE/ABDOMINAL WALL: Unremarkable IMPRESSION: 1. Diffusely fluid-filled nondilated small and large bowel are identified without wall thickening or surrounding inflammatory changes. This can be seen with an enterocolitis. 2. Post surgical changes from gastric sleeve. [facility], , 11/05/2024 4:17 PM
[2024-11-05 16:31] LABS: ALT 19 U/L (4-49); African American GFR (CKD) >90 (>60 ml/min/1.73 sqM); Albumin 4.4 g/dL (3.5-5.0); Amylase 71 U/L (30-110); Anion Gap 12 mmol/L; Blood Urea Nitrogen 15 mg/dL (9-20); Calcium 9.8 mg/dL (8.4-10.2); Carbon Dioxide 21 mmol/L (22-30); Chloride 103 mmol/L (98-107); Glucose 112 mg/dL (74-99); Lipase 159 U/L (23-300); Non-African American GFR(CKD) >90 (>60 ml/min/1.73 sqM); Sodium 136 mmol/L (137-145); Total Bilirubin 1.2 mg/dL (0.2-1.3); Total Protein 7.2 g/dL (6.3-8.2)
[2024-11-05 16:31] LABS: INR 1.1 (<1.2); Partial Thromboplastin Time 22.5 sec (22.0-30.0); Prothrombin Time 12.1 sec (10.0-12.5)
[2024-11-05 16:39] LABS: AST 36 U/L (17-59); Alkaline Phosphatase 111 U/L (38-126); Potassium 4.3 mmol/L (3.5-5.1)
[2024-11-05 16:43] LABS: Appearance,Urine Clear (Clear); Bilirubin,Urine Negative (Negative); Blood,Urine Negative (Negative); Color,Urine Colorless; Glucose,Urine (UA) Negative (Negative); Ketones,Urine 2+ (Negative); Leukocyte Esterase,Urine Negative (Negative); Nitrite,Urine Negative (Negative); PH, Urine 6.5 (5.0-8.0); Protein,Urine Negative (Negative); Urobilinogen,Urine <2.0 mg/dL (<2.0)
[2024-11-05 16:48] LABS: Specific Gravity,Urine >1.050 (1.001-1.035)
[2024-11-05 18:13] VITALS: TEMP 98.7
--- NOTE | 2024-11-05 18:52 | ED ---
General Adult HPI - General Chief complaint: Abdominal Pain Stated complaint: abd pain, dizziness Time Seen by Provider: 11/05/24 14:12 Source: patient, RN notes reviewed, old records reviewed Mode of arrival: ambulatory Limitations: no limitations - History of Present Illness Initial comments: Patient is a 44-year-old male with history of cholecystectomy as well as a gastric sleeve procedure appetite Dr. Hartman who presents emergency department complaining of upper abdominal pain. Started somewhat last night with acid reflux symptoms but states that it got worse today and this morning. Last meal was this morning at 8:30 AM. States the pain is a sharp, achy sensation with nausea and vomiting had some diarrhea as well. No known sick contacts. No one else has similar symptoms that he lives with her that ate the same food as him. Denies any chest pain or shortness of breath. No other significant acute complaints at this time. Presents for further evaluation at this time. - Related Data Home Medications Medication Instructions Recorded Confirmed Ergocalciferol [Vitamin D2 (1250 50,000 unit PO MOWE 08/05/23 09/14/24 Mcg = 58107 Iu)] Calcium Carbonate [Calcium] 600 mg PO DAILY 09/26/23 09/14/24 Previous Rx's Medication Instructions Recorded Omeprazole [PriLOSEC] 20 mg PO DAILY #90 cap 12/10/23 Dicyclomine [Bentyl] 10 mg PO TID PRN 7 Days #21 capsule 11/05/24 Famotidine [Pepcid] 20 mg PO DAILY 14 Days #14 tablet 11/05/24 Allergies Allergy/AdvReac Type Severity Reaction Status Date / Time codeine AdvReac migraine Verified 03/22/24 17:21 Review of Systems ROS Statement: Those systems with pertinent positive or pertinent negative responses have been documented in the HPI. Review of Systems: CONST: Denies fever EYES: Denies blurry vision ENT: Denies nasal congestion C/V: Denies Chest pain RESP: Denies shortness of breath GI: Endorses abdominal pain : Denies dysuria SKIN: Denies rash. MSK: Denies joint pain. NEURO: Denies headache ROS Other: All systems not noted in ROS Statement are negative. Past Medical History Past Medical History: Hypertension History of Any Multi-Drug Resistant Organisms: None Reported Past Surgical History: Bariatric Surgery, Cholecystectomy Additional Past Surgical History / Comment(s): EGD. Sleeve gastrectomy 6-3-24 Past Anesthesia/Blood Transfusion Reactions: No Reported Reaction Additional Past Anesthesia/Blood Transfusion Reaction / Comment(s): no blood transfusion Past Psychological History: Anxiety Smoking Status: Never smoker Past Alcohol Use History: Occasional Past Drug Use History: None Reported - Past Family History Mother Family Medical History: No Reported History General Exam - General Exam Comments Initial Comments: General: Appears in mild distress secondary to abdominal pain. HEAD: Normal with no signs of head trauma. EYES: EOMI ENT: Hearing grossly intact, normal oropharynx. RESPIRATORY: Clear breath sounds bilaterally. No wheezes, rales, or rhonchi. C/V: Regular rate and rhythm. S1 and S2 auscultated, peripheral pulses 2+ and i ntact throughout ABD: Abdomen soft, nondistended. Mild tenderness to palpation periumbilically and in the epigastric region. No guarding or rebound tenderness. No peritoneal signs. EXT: No obvious deformity. SKIN: No rashes or lesions observed on exposed skin. NEURO: Alert and oriented x 4. Limitations: no limitations Course Vital Signs 11/05/24 11/05/24 11/05/24 13:54 16:09 18:12 Temperature 97.7 F 98.8 F 98.7 F Pulse Rate 96 89 100 Respiratory 18 16 16 Rate Blood Pressure 132/78 145/88 134/84 O2 Sat by Pulse 100 100 99 Oximetry 11/05/24 19:32 Temperature Pulse Rate 90 Respiratory 18 Rate Blood Pressure 126/72 O2 Sat by Pulse 96 Oximetry Medical Decision Making - Medical Decision Making Was pt. sent in by a medical professional or institution (, PA, JAVA LEAD DEVELOPER, urgent care, hospital, or group home...) When possible be specific @ -No Did you speak to anyone other than the patient for history (EMS, parent, family, police, friend...)? What history was obtained from this source @ -No Did you review nursing and triage notes (agree or disagree)? Why? @ -I reviewed and agree with nursing and triage notes Were old charts reviewed (outside hosp., previous admission, EMS record, old EKG, old radiological studies, urgent care reports/EKG's, group home records)? Report findings @ -No old charts were reviewed Differential Diagnosis (chest pain, altered mental status, abdominal pain women, abdominal pain men, vaginal bleeding, weakness, fever, dyspnea, syncope, headache, dizziness, GI bleed, back pain, seizure, CVA, palpatations, mental health, musculoskeletal)? @ -Differential Abdominal Pain Men: Appendicitis, cholecystitis, diverticulosis, ischemic bowel, pancreatitis, hepat itis, UTI, gastroenteritis, AAA, incarcerated hernia, bowel obstruction, constipation, inflammatory bowel, hepatitis, peptic ulcer disease, splenic infarction, perforated viscus, testicular torsion, this is not meant to be an all-inclusive list EKG interpreted by me (3pts min.). @ -As above X-rays interpreted by me (1pt min.). @ -Chest x-ray reveals no obvious acute cardiopulmonary process. CT interpreted by me (1pt min.). @ -CT abdomen pelvis with contrast reveals diffusely fluid-filled nondilated small and large bowel. Suspicious for enterocolitis. U/S interpreted by me (1pt. min.). @ -None done What testing was considered but not performed or refused? (CT, X-rays, U/S, labs)? Why? @ -None What meds were considered but not given or refused? Why? @ -None Did you discuss the management of the patient with other professionals (professionals i.e. , PA, JAVA LEAD DEVELOPER, lab, RT, psych nurse, school social worker, diver pumper, teacher, amphibious operations officer, piano case and bench assembler)? Give summary @ -No Was smoking cessation discussed for >3mins.? @ -No Was critical care preformed (if so, how long)? @ -No Were there social determinants of health that impacted care today? How? (Homelessness, low income, unemployed, alcoholism, drug addiction, transportation, low edu. Level, literacy, decrease access to med. care, nursing home, rehab)? @ -No Was there de-escalation of care discussed even if they declined (Discuss DNR or withdrawal of care, Hospice)? DNR status @ -No What co-morbidities impacted this encounter? (DM, HTN, Smoking, COPD, CAD, Cancer, CVA, ARF, Chemo, Hep., AIDS, mental health diagnosis, sleep apnea, m orbid obesity)? @ -None Was patient admitted / discharged? Hospital course, mention meds given and route, prescriptions, significant lab abnormalities, going to OR and other pertinent info. @ -The patient's presentation and physical exam, presents emergency department for abdominal pain. History of gastric sleeve surgery 1 year ago. Vitals are within acceptable limits. He will be administered IV analgesia medications, Zofran, Protonix, fluids. Will obtain abdominal workup and CT imaging. Patient was in agreement this plan. EKG shows no signs of acute ischemia. Chest x-ray unremarkable. CT abdomen pelvis shows enterocolitis. Laboratory studies are remarkable for mild leukocytosis of 14 which is likely reactive. Remainder the labs unremarkable including normal lactic acid. I have did the patient. He is feeling improved. He will be discharged home at this time. He is tolerating oral intake. He will be given a prescription for Pepcid, as well as Bentyl. Starter pack of Zofran will be provided as well. Recommended follow-up with Dr. Hartman. He was in agreement this plan. I instructed the patient to follow up with their PCP in the next 1-3 days. I explained that the patient should return to the emergency department if they experience any worsening symptoms. Strict return precautions were discussed with the patient. The patient expressed understanding of these instructions. I answered all questions that the patient had. The patient was discharged home in good condition with their prescriptions and follow up information. Undiagnosed new problem with uncertain prognosis? @ -No Drug Therapy requiring intensive monitoring for toxicity (Heparin, Nitro, Insulin, Cardizem)? @ -No Were any procedures done? @ -No Diagnosis/symptom? @ -Enterocolitis, gastroenteritis, nausea vomiting and diarrhea Acute, or Chronic, or Acute on Chronic? @ -Acute Uncomplicated (without systemic symptoms) or Complicated (systemic symptoms)? @ -Uncomplicated Side effects of treatment? @ -No Exacerbation, Progression, or Severe Exacerbation? @ -No Poses a threat to life or bodily function? How? (Chest pain, [place], [place], pneumonia, PE, COPD, DKA, ARF, appy, cholecystitis, CVA, Diverticulitis, Homicidal, Suicidal, threat to staff... and all critical care pts) @ -Unlikely at this time - Lab Data Result diagrams: 11/05/24 15:26 11/05/24 15: Lab Results 11/05/24 11/05/24 11/05/24 Range/Units 15:26 15: 15: WBC 14.92 H (4.50-10.00) 10*3/uL RBC 5.29 (4.40-5.60) 10*6/uL Hgb 16.5 (13.0-17.0) g/dL Hct 47.0 (39.6-50.0) % MCV 88.8 (80.0-97.0) fL MCH 31.2 (27.0-32.0) pg MCHC 35.1 (32.0-37.0) g/dL Plt Count 332 (140-440) 10*3/uL MPV 9.4 L (9.5-12.2) fL Immature Gran % (Auto) 0.3 % Neutrophils % 91.1 % Lymphocytes % 2.7 % Monocytes % 4.4 % Eosinophils % 0.9 % Basophils % 0.6 % Immature Gran # 0.04 (0.00-0.04) 10*3/uL Neutrophils # 13.58 H (1.80-7.70) 10*3/uL Lymphocytes # 0.41 L (0.90-5.00) 10*3/uL Monocytes # 0.66 (0.20-1.00) 10*3/uL Eosinophils # 0.14 (0.04-0.35) 10*3/uL Basophils # 0.09 (0.00-0.10) 10*3/uL PT (10.0-12.5) sec INR (<1.2) APTT (22.0-30.0) sec Sodium 136 L (137-145) mmol/L Potassium 4.3 (3.5-5.1) mmol/L Chloride 103 (98-107) mmol/L Carbon Dioxide 21 L (22-30) mmol/L Anion Gap 12 mmol/L BUN 15 (9-20) mg/dL Creatinine 0.84 (0.66-1.25) mg/dL Est GFR (CKD-EPI)AfAm >90 (>60 ml/min/1.73 sqM) Est GFR (CKD-EPI)NonAf >90 (>60 ml/min/1.73 sqM) Glucose 112 H (74-99) mg/dL Plasma Lactic Acid Sid 2.0 (0.7-2.0) mmol/L Calcium 9.8 (8.4-10.2) mg/dL Total Bilirubin 1.2 (0.2-1.3) mg/dL AST 36 (17-59) U/L ALT 19 (4-49) U/L Alkaline Phosphatase 111 (38-126) U/L Total Protein 7.2 (6.3-8.2) g/dL Albumin 4.4 (3.5-5.0) g/dL Amylase 71 (30-110) U/L Lipase 159 (23-300) U/L Urine Color Urine Appearance (Clear) Urine pH (5.0-8.0) Ur Specific [place] (1.001-1.035) Urine Protein (Negative) Urine Glucose (UA) (Negative) Urine Ketones (Negative) Urine Blood (Negative) Urine Nitrite (Negative) Urine Bilirubin (Negative) Urine Urobilinogen (<2.0) mg/dL Ur Leukocyte Esterase (Negative) 11/05/24 11/05/24 Range/Units 15:27 16:31 WBC (4.50-10.00) 10*3/uL RBC (4.40-5.60) 10*6/uL Hgb (13.0-17.0) g/dL Hct (39.6-50.0) % MCV (80.0-97.0) fL MCH (27.0-32.0) pg MCHC (32.0-37.0) g/dL Plt Count (140-440) 10*3/uL MPV (9.5-12.2) fL Immature Gran % (Auto) % Neutrophils % % Lymphocytes % % Monocytes % % Eosinophils % % Basophils % % Immature Gran # (0.00-0.04) 10*3/uL Neutrophils # (1.80-7.70) 10*3/uL Lymphocytes # (0.90-5.00) 10*3/uL Monocytes # (0.20-1.00) 10*3/uL Eosinophils # (0.04-0.35) 10*3/uL Basophils # (0.00-0.10) 10*3/uL PT 12.1 (10.0-12.5) sec INR 1.1 (<1.2) APTT 22.5 (22.0-30.0) sec Sodium (137-145) mmol/L Potassium (3.5-5.1) mmol/L Chloride (98-107) mmol/L Carbon Dioxide (22-30) mmol/L Anion Gap mmol/L BUN (9-20) mg/dL Creatinine (0.66-1.25) mg/dL Est GFR (CKD-EPI)AfAm (>60 ml/min/1.73 sqM) Est GFR (CKD-EPI)NonAf (>60 ml/min/1.73 sqM) Glucose (74-99) mg/dL Plasma Lactic Acid Sid (0.7-2.0) mmol/L Calcium (8.4-10.2) mg/dL Total Bilirubin (0.2-1.3) mg/dL AST (17-59) U/L ALT (4-49) U/L Alkaline Phosphatase (38-126) U/L Total Protein (6.3-8.2) g/dL Albumin (3.5-5.0) g/dL Amylase (30-110) U/L Lipase (23-300) U/L Urine Color Colorless Urine Appearance Clear (Clear) Urine pH 6.5 (5.0-8.0) Ur Specific [place] >1.050 H (1.001-1.035) Urine Protein Negative (Negative) Urine Glucose (UA) Negative (Negative) Urine Ketones 2+ H (Negative) Urine Blood Negative (Negative) Urine Nitrite Negative (Negative) Urine Bilirubin Negative (Negative) Urine Urobilinogen <2.0 (<2.0) mg/dL Ur Leukocyte Esterase Negative (Negative) - EKG Data -: EKG Interpreted by Me EKG Comments: 12-lead Electrocardiogram Interpretation Note EKG was reviewed and interpreted by myself. 12-lead ECG performed at 1506 is interpreted by me as revealing normal sinus rhythm at a rate of 86 beats per minute. [place] is normal. [place] interval is 171 ms, QRS duration is 105 ms, QTc is 3 1088 ms.. There were no ST or T wave abnormalities to suggest myocardial ischemia or injury. R wave progression across the precordium was satisfactory. By my interpretation this EKG is non-diagnostic for acute ischemia. Disposition Clinical Impression: Enterocolitis, Nausea vomiting and diarrhea, Gastroenteritis Disposition: HOME SELF-CARE Condition: Good Instructions (If sedation given, give patient instructions): Gastroenteritis (ED) Prescriptions: Dicyclomine [Bentyl] 10 mg PO TID PRN 7 Days #21 capsule PRN Reason: Pain Famotidine [Pepcid] 20 mg PO DAILY 14 Days #14 tablet Is patient prescribed a controlled substance at d/c from ED?: No Referrals: Mary Jo Ceballos MD [Primary Care Provider] - 1-2 days Randy Barillas MD [Medical Doctor] - 1-2 days Time of Disposition: 18:52
[2024-11-05] MEDS: ONDANSETRON 4 MG ODT STARTER PACK 2 TAB BTL PO STA (19:28)
[2024-11-05 19:34] VITALS: BP 126/72; PULSE 90; RESP 18
== END 2024-11-05 19:34 | disposition home or self-care (01) ==
LOC: EC 13:43
DX: R11.2 Nausea with vomiting, unspecified (principal); K52.9 Noninfective gastroenteritis and colitis, unspecified; K21.9 Gastro-esophageal reflux disease without esophagitis; Z88.5 Allergy status to narcotic agent
CPT/HCPCS: 36415; 93005; 80053; 82150; 83605; 83690; 85025; 85610; 85730; 81003; 71046; 74177; 99285; 96374; 96375; 96376; 96361; J2405; J1885; S0119; Q9967; J2470

== ENCOUNTER → 2024-12-14 | Outpatient (CLI) | payer BC ==
[2024-12-14 13:16] VITALS: BP 146/89; PULSE 60; RESP 16; TEMP 98.1; BMI 29.0
--- NOTE | 2024-12-14 13:32 | P.BASOAP ---
Subjective Progress Note Date: 12/14/24 Principal diagnosis: Morbid obesity Patient returns for recheck. Doing well since last visit. Lost 4 pounds in the last 6 to 8 weeks. Had 1 episode of dysphagia with oatmeal and had significant epigastric discomfort. Went to the ER. Had vomiting and diarrhea. Symptoms resolved after that. CAT scan was performed showing some mildly dilated small bowel and colon. Does not take antiacids. Due for annual lab work. Objective - Vital Signs Vital signs: Vital Signs Temp 98.1 F 12/14/24 13:13 Pulse 60 12/14/24 13:13 Resp 16 12/14/24 13:13 BP 146/89 12/14/24 13:13 Pulse Ox FiO2 Intake & Output 12/13/24 12/14/24 12/14/24 18:59 06:59 18:59 Weight 105.233 kg - Exam Abdomen: Soft, nontender, nondistended Assessment/Plan (1) Morbid obesity with BMI of 40.0-44.9, adult Narrative/Plan: Patient doing well at this time. He is 1 year post sleeve gastrectomy. Excellent results with BMI 29. Continue dietary and exercise regimen. Monitor for recurrent symptoms of vomiting. Check annual lab work. Follow-up 6 months. Plan: Date: 12/14/24 Initial Weight: 149.685 kg Initial BMI: 41.2 Current Weight: 105.233 kg Current BMI: 29.0 Type of Surgery: Vertical Sleeve Gastrectomy Total Volume in Band: Previous Volume: Volume Removed: Volume Added: Band Size:
== END ==
LOC: BARWHC3 13:01
PROVIDERS: ATTEND Surgery
DX: E66.01 Morbid (severe) obesity due to excess calories (principal); Z88.5 Allergy status to narcotic agent; Z68.29 Body mass index [BMI] 29.0-29.9, adult
CPT/HCPCS: 99211